=== PATIENT | female | born 1960 | race Caucasian/White ===

== ENCOUNTER 2018-07-15 12:55 | Emergency (ER) | payer SELFPAY ==
--- NOTE | 2018-07-15 14:31 | ER Document Report ---
ED Medical Screen (RME) - General TRAVEL OUTSIDE OF THE U.S. IN LAST 30 DAYS: No <ALIS ADAMS - Last Filed: 07/15/18 14:30> <ROMINA JIANG - Last Filed: 07/15/18 17:50> - General Chief Complaint: Nose Bleed Stated Complaint: BLOODY NOSE Time Seen by Provider: 07/15/18 14:12 Notes: 58-year-old female patient reports nosebleeds for the past 3 days. day night there was a lot of blood and she has been feeling weak. Nosebleeds are a new problem for her. Blood came out of both sides. She is not actively bleeding at this time. In the ED she is noted to have very high blood pressure, she was not aware of this, but states she has had no insurance for the last 18 years and is not been to see a doctor. I have greeted and performed a rapid initial assessment of this patient. A comprehensive ED assessment and evaluation of the patient, analysis of test results and completion of the medical decision making process will be conducted by additional ED providers. (ALIS ADAMS) - Related Data Allergies/Adverse Reactions: No Known Allergies Allergy (Unverified 07/15/18 14:10) Past Medical History - Social History Frequency of alcohol use: Occasional Drug Abuse: None Renal/ Medical History: Denies: Hx Peritoneal Dialysis Past Surgical History: Reports: Hx Breast Surgery - right breast removed <ALIS ADAMS - Last Filed: 07/15/18 14:30> - Vital signs Vitals: Temp Pulse Resp BP Pulse Ox 97.6 F 113 H 20 192/106 H 100 07/15/18 13:21 07/15/18 13:21 07/15/18 13:21 07/15/18 13:21 07/15/18 13:21 Course - Laboratory Result Diagrams: 07/15/18 14:53 07/15/18 14:53 <ROMINA JIANG - Last Filed: 07/15/18 17:50> - Vital Signs Vital signs: Temp Pulse Resp BP Pulse Ox 97.6 F 113 H 29 H 209/96 H 100 07/15/18 13:21 07/15/18 13:21 07/15/18 16:06 07/15/18 16:06 07/15/18 16:06 - Laboratory Laboratory results interpreted by me: 07/15/18 07/15/18 14:53 14:53 WBC 11.4 H Hgb 11.9 L Hct 34.1 L Seg Neutrophils % 78.6 H Absolute Neutrophils 9.0 H Carbon Dioxide 19 L BUN 59 H Creatinine 1.29 H Est GFR ( Amer) 51 L Est GFR (Non-Af Amer) 42 L Doctor's Discharge <ALIS ADAMS - Last Filed: 07/15/18 14:30> <ROMINA JIANG - Last Filed: 07/15/18 17:50> - Discharge Referrals: LOCALMD,NO [NO LOCAL MD] - Follow up as needed
[2018-07-15] MEDS ORDERED: HYDRALAZINE HCL INJ/PF 20 MG/1 ML SDV IV ONE (15:04)
[2018-07-15 15:07] LABS: ABSOLUTE BASOPHILS # (AUTO) 0.1 10^3/uL (0.0-0.2); ABSOLUTE LYMPHOCYTES (AUTO) 1.6 10^3/uL (0.5-4.7); ABSOLUTE MONOCYTES (AUTO) 0.7 10^3/uL (0.1-1.4); BASOPHILS % (AUTO) 0.9 % (0-2); EOSINOPHILS % (AUTO) 0.2 % (0-6); HEMATOCRIT 34.1 % (36.0-47.0); HEMOGLOBIN 11.9 g/dL (12.0-15.5); LYMPHOCYTES % (AUTO) 14.1 % (13-45); MEAN CORPUSCULAR HEMOGLOBIN 30.4 pg (27.0-33.4); MEAN CORPUSCULAR VOLUME 87 fl (80-97); MONOCYTES % (AUTO) 6.2 % (3-13); PLATELET COUNT 224 10^3/uL (150-450); RED BLOOD COUNT 3.92 10^6/uL (3.72-5.28); RED CELL DISTRIBUTION WIDTH 13.1 % (11.5-14.0); SEGMENTED NEUTROPHILS % (AUTO) 78.6 % (42-78); TOTAL CELLS COUNTED % (AUTO) 100 %; WHITE BLOOD COUNT 11.4 10^3/uL (4.0-10.5)
[2018-07-15] MEDS ORDERED: ONDANSETRON HCL INJ/PF 4 MG/2 ML SDV IV ONE (15:13)
[2018-07-15 15:22] LABS: INTERNATIONAL RATION (INR) 0.94; PROTHROMBIN TIME 13.1 SEC (11.4-15.4)
[2018-07-15 15:31] LABS: ALANINE AMINOTRANSFERASE 12 U/L (9-52); ALBUMIN 3.8 g/dL (3.5-5.0); ALKALINE PHOSPHATASE 51 U/L (38-126); ANION GAP 13 (5-19); ASPARTATE AMINO TRANSFERASE 17 U/L (14-36); BILIRUBIN,DIRECT 0.3 mg/dL (0.0-0.4); BILIRUBIN,TOTAL 0.8 mg/dL (0.2-1.3); BLOOD UREA NITROGEN 59 mg/dL (7-20); CALCIUM 9.2 mg/dL (8.4-10.2); CARBON DIOXIDE 19 mmol/L (22-30); CHLORIDE 106 mmol/L (98-107); GLUCOSE 110 mg/dL (75-110); POTASSIUM 4.7 mmol/L (3.6-5.0); SODIUM 137.8 mmol/L (137-145); TOTAL PROTEIN 6.4 g/dL (6.3-8.2)
[2018-07-15] MEDS ORDERED: METOPROLOL TARTRATE 50 MG TABLET PO ONE (15:57)
[2018-07-15 18:00] VITALS: BP 182/97
--- NOTE | 2018-07-15 18:09 | ER Document Report ---
ED General - General Chief Complaint: Nose Bleed Stated Complaint: BLOODY NOSE Time Seen by Provider: 07/15/18 14:12 Mode of Arrival: Ambulatory Information source: Patient TRAVEL OUTSIDE OF THE [place]. IN LAST 30 DAYS: No - HPI Patient complains to provider of: Nosebleed Onset: Other - 58-year-old female with no known medical problems presents for evaluation of a nosebleed. She notes that she has not received any care in several months as she lost insurance previously. She has had 3 episodes of nosebleeds this month which were "like a faucet" which she was able to stop with the use of direct pressure after some time. She denies any trauma to the nose fevers or chills blood thinner use previous episodes of bleeding or problems related to bleeding - Related Data Allergies/Adverse Reactions: No Known Allergies Allergy (Unverified 07/15/18 14:10) Past Medical History - General Information source: Patient - Social History Smoking Status: Current Every Day Smoker Smoking Education Provided: Yes Frequency of alcohol use: Occasional Drug Abuse: None Family History: None Patient has suicidal ideation: No Patient has homicidal ideation: No Renal/ Medical History: Denies: Hx Peritoneal Dialysis Past Surgical History: Reports: Hx Breast Surgery - right breast removed Review of Systems - Review of Systems -: Yes All other systems reviewed and negative Physical Exam - Vital signs Vitals: Temp Pulse Resp BP Pulse Ox 97.6 F 113 H 20 192/106 H 100 07/15/18 13:21 07/15/18 13:21 07/15/18 13:21 07/15/18 13:21 07/15/18 13:21 - General General appearance: Appears well, Alert - HEENT Head: Normocephalic Eyes: Normal Conjunctiva: Normal Cornea: Normal Ears: Normal External canal: Normal Nasal: Bloody discharge - Respiratory Respiratory status: No respiratory distress Chest status: Nontender Breath sounds: Normal Chest palpation: Normal - Cardiovascular Rhythm: Regular Heart sounds: Normal auscultation Murmur: No - Abdominal Inspection: Normal Distension: No distension Bowel sounds: Normal Tenderness: Nontender Organomegaly: No organomegaly - Back Back: Normal, Nontender - Extremities General upper extremity: Normal inspection, Nontender, Normal color, Normal ROM , Normal temperature General lower extremity: Normal inspection, Nontender, Normal color, Normal ROM , Normal temperature, Normal weight bearing. No: Kassie's sign - Neurological Neuro grossly intact: Yes Cognition: Normal Orientation: AAOx4 Bliss Coma Scale Eye Opening: Spontaneous Kristine Coma Scale Verbal: Oriented Bliss Coma Scale Motor: Obeys Commands Kristine Coma Scale Total: 15 Speech: Normal Motor strength normal: LUE, RUE, LLE, RLE Sensory: Normal - Psychological Associated symptoms: Normal affect, Normal mood Course - Re-evaluation Re-evalutation: Despite actually documented vital signs patient's actual vital signs improved in comparison, heart rate is in the 80s. Blood pressures in the 170 systolic range. Patient's asymptomatic at this time with no complaints. This 58-year-old female presented for bloody nose which stopped prior to my evaluation. At the time of evaluation she did have slight blood dried near the left naris but otherwise looked well. She is evidence of hypertension her arrival likely is a contributor to recurrent nosebleed she is not received care in a long time. Initially because of her markedly elevated blood pressure she was given a dose of metoprolol. Her blood pressure improved following administration of antihypertensives. She was monitored in the emergency department, no endorgan damage was obviously identified though she does have a slight evidence of renal insufficiency I did speak to her about further management investigation and alternatives I offered admission and monitoring in the hospital for markedly elevated blood pressure I offered her outpatient management and referral she prefers to pursue outpatient treatment. She is given a prescription for blood pressure medication as she does seem to have likely undiagnosed persistent hypertension for which she is currently untreated. She also did have an abnormal EKG which did demonstrate hypertrophic changes likely as a result of her long-standing untreated hypertension. At the time of discharge she was hemodynamically stable asymptomatic and not desiring any further workup. She will undergo discharge with return precautions and expectant management encouraged follow-up with the primary in the coming week for a blood pressure recheck. - Vital Signs Vital signs: Temp Pulse Resp BP Pulse Ox 97.6 F 113 H 19 182/97 H 100 07/15/18 13:21 07/15/18 13:21 07/15/18 17:01 07/15/18 17:01 07/15/18 17:01 - Laboratory Result Diagrams: 07/15/18 14:53 07/15/18 14:53 Laboratory results interpreted by me: 07/15/18 07/15/18 14:53 14:53 WBC 11.4 H Hgb 11.9 L Hct 34.1 L Seg Neutrophils % 78.6 H Absolute Neutrophils 9.0 H Carbon Dioxide 19 L BUN 59 H Creatinine 1.29 H Est GFR ( Amer) 51 L Est GFR (Non-Af Amer) 42 L Discharge - Discharge Clinical Impression: Bleeding nose Hypertension Qualifiers: Hypertension type: unspecified Qualified Code(s): I10 - Essential (primary) hypertension Condition: Good Disposition: HOME, SELF-CARE Instructions: High Blood Pressure ([facility]), Nosebleed Instructions ([facility]) Additional Instructions: He was seen today in the emergency department for your nosebleed and high blood pressure. He had an evaluation including a physical exam as well as test of your blood and tracing of your heart. You have been started on a blood pressure medication. It is important that you follow-up with a doctor this week. If you have any worsening shortness of breath, chest pain, lightheadedness or return of nosebleeds return to the emergency room as it could be a more serious condition. Avoid blood thinning medications and avoid dryer make sure you are taking medications for your allergies. Prescriptions: Metoprolol Tartrate [Lopressor 50 mg Tablet] 50 mg PO BID #60 tablet Forms: Elevated Blood Pressure, Return to Work Referrals: [facility] [Provider Group] - Follow up in 3-5 days
--- NOTE | 2018-07-15 19:39 | EKG REPORT ---
SEVERITY:- ABNORMAL ECG - SINUS RHYTHM PROBABLE LEFT ATRIAL ABNORMALITY LVH WITH SECONDARY REPOLARIZATION ABNORMALITY ANTERIOR ST ELEVATION, PROBABLY DUE TO LVH : Confirmed by: Latrell Whitt MD 15-Jul-2018 19:38:52
== END 2018-07-15 18:45 | disposition home or self-care (01) ==
LOC: ER 12:55
DX: R04.0 Epistaxis (principal); I10 Essential (primary) hypertension; N28.9 Disorder of kidney and ureter, unspecified; F17.200 Nicotine dependence, unspecified, uncomplicated
CPT/HCPCS: 93005; 99284; 96374; 96375; 36415; 85025; 85610; 80053; 93010; J0360; J2405

== ENCOUNTER 2018-10-28 18:39 | Emergency (ER) | payer SELFPAY ==
[2018-10-28 19:16] LABS: ABSOLUTE BASOPHILS # (AUTO) 0.1 10^3/uL (0.0-0.2); ABSOLUTE EOSINOPHILS # (AUTO) 0.1 10^3/uL (0.0-0.6); ABSOLUTE MONOCYTES (AUTO) 0.9 10^3/uL (0.1-1.4); EOSINOPHILS % (AUTO) 0.8 % (0-6); HEMATOCRIT 44.4 % (36.0-47.0); HEMOGLOBIN 15.2 g/dL (12.0-15.5); LYMPHOCYTES % (AUTO) 10.3 % (13-45); MEAN CORPUSCULAR HEMOGLOBIN 26.1 pg (27.0-33.4); MEAN CORPUSCULAR HGB CONC 34.3 g/dL (32.0-36.0); MEAN CORPUSCULAR VOLUME 76 fl (80-97); MONOCYTES % (AUTO) 8.9 % (3-13); PLATELET COUNT 243 10^3/uL (150-450); RED BLOOD COUNT 5.84 10^6/uL (3.72-5.28); RED CELL DISTRIBUTION WIDTH 15.9 % (11.5-14.0); TOTAL CELLS COUNTED % (AUTO) 100 %; WHITE BLOOD COUNT 10.1 10^3/uL (4.0-10.5)
[2018-10-28 19:18] LABS: PROTHROMBIN TIME 12.6 SEC (11.4-15.4)
[2018-10-28 19:19] LABS: PARTIAL THROMBOPLASTIN TIME 31.4 SEC (23.5-35.8)
[2018-10-28] MEDS: NICARDIPINE HCL RTU, ISO-OS 20 MG/200 ML RTUINJ IV PRN ×2 (19:20→19:36)
--- NOTE | 2018-10-28 19:30 | EKG REPORT ---
SEVERITY:- ABNORMAL ECG - SINUS RHYTHM LEFT ATRIAL ABNORMALITY LVH WITH SECONDARY REPOLARIZATION ABNORMALITY ANTERIOR ST ELEVATION, PROBABLY DUE TO LVH : Confirmed by: Latrell Whitt MD 28-Oct-2018 19:29:38
--- NOTE | 2018-10-28 19:32 | RADIOLOGY REPORT (SQ) ---
EXAM DESCRIPTION: CT HEAD WITHOUT COMPLETED DATE/TIME: 10/28/2018 7:07 pm REASON FOR STUDY: stroke s/s COMPARISON: None. TECHNIQUE: Axial images acquired through the brain without intravenous contrast. Images reviewed wi th bone, brain and subdural windows. Additional sagittal and coronal reconstructions were generated. Images stored on PACS. All CT scanners at this facility use dose modulation, iterative reconstruction, and/or weight based d osing when appropriate to reduce radiation dose to as low as reasonably achievable (ALARA). [facility]: Dose Right [facility]: CareDose [facility]: Dose Right [facility]: Teradose 4D [facility]: [employer] RADIATION DOSE: mGy. LIMITATIONS: None. FINDINGS: VENTRICLES: Normal size and contour. CEREBRUM: There is a 3 cm area of hemorrhage in the left posterior frontal lobe. There is no midline shift. There is limited encephalomalacia in the posterior left occipital lobe. Few scattered areas of low density in the white matter most likely chronic small vessel ischemic changes. CEREBELLUM: There is small area of encephalomalacia in the right lobe of the cerebellum. EXTRAAXIAL SPACES: No fluid collections. No masses. ORBITS AND GLOBE: No intra- or extraconal masses. Normal contour of globe without masses. CALVARIUM: No fracture. PARANASAL SINUSES: No fluid or mucosal thickening. SOFT TISSUES: No mass or hematoma. OTHER: No other significant finding. IMPRESSION: 3 cm area of hemorrhage in the left posterior frontal lobe. 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 EVIDENCE OF ACUTE STROKE: Yes LEFT MCA. COMMENT: Findings were discussed with Telma Dillon MD at 1926 hours on this date. Quality ID # [id number]: Final reports with documentation of one or more dose reduction techniques (e.g., Au tomated exposure control, adjustment of the mA and/or kV according to patient size, use of iterative reconstruction technique) TECHNICAL DOCUMENTATION: JOB ID: [id number] [employer]- All Rights Reserved Reading location - IP/workstation name: [email or web address]
--- NOTE | 2018-10-28 19:47 | ER Document Report ---
ED General - General Stated Complaint: POSSIBLE STROKE Time Seen by Provider: 10/28/18 18:39 Mode of Arrival: Stretcher Information source: Patient, Emergency Med Personnel Notes: HISTORY OF PRESENT ILLNESS: Patient is a 58-year-old female with a past medical history of uncontrolled hypertension secondary to medication noncompliance who presents with acute onset trouble speaking with right-sided face weakness that began approximately 1.5 hours prior to arrival. Location: Face Onset: Sudden Alleviation: None Provocation: None Quality: Weakness Radiation: None Severity: Moderate Timing: Constant History of CVA: None Associated symptoms: No confusion/disorientation, no chest pain/shortness of breath, no fevers/chills, no ataxia REVIEW OF SYSTEMS: CONSTITUTIONAL : Denies fever or chills, no sweats. Denies recent illness. EENT: Denies eye, ear, throat, or mouth pain or symptoms. Denies nasal or sinus congestion. CARDIOVASCULAR: Denies chest pain. Denies swelling of the legs. RESPIRATORY: Denies cough, cold, or chest congestion. Denies shortness of breath or difficulty breathing. Denies wheezing. GASTROINTESTINAL: Denies abdominal pain. Denies nausea, vomiting, or diarrhea. Denies constipation. GENITOURINARY: Denies difficulty urinating, painful urination, burning, frequency, or blood in urine. MUSCULOSKELETAL: Denies neck or back pain or joint pain or swelling. SKIN: Denies rash or skin lesions. HEMATOLOGIC : Denies easy bruising or bleeding. LYMPHATIC: Denies swollen, enlarged glands. NEUROLOGICAL: Positive for aphasia and right-sided facial weakness. Denies altered mental status or loss of consciousness. Denies headache. Denies sensory or motor loss. PSYCHIATRIC: Denies anxiety or stress or depression. All other systems reviewed and negative. PHYSICAL EXAMINATION: GENERAL: Nontoxic-appearing, well-nourished and in no acute distress. HEAD: Atraumatic, normocephalic. No scalp deformity, depression, or crepitance. EYES: Right-sided facial droop, pupils are 3 mm and equal/round/reactive to light, extraocular movements intact, sclera anicteric, conjunctiva are normal. ENT: Nares patent bilaterally, oropharynx. Moist mucous membranes. No tonsil hypertrophy. NECK: Normal range of motion, supple without lymphadenopathy. LUNGS: Breath sounds present, equal, and clear to auscultation bilaterally. No wheezes, rales, or rhonchi. HEART: Regular rate and rhythm without murmurs, rubs, or gallops. 2+ peripheral pulses. Normal capillary refill. ABDOMEN: Soft, nontender, nondistended. Normoactive bowel sounds. No guarding, no rebound. No masses appreciated. BACK: Normal contour, no midline tenderness. Rectal exam deferred. GENITAL/PELVIC: Deferred. EXTREMITIES: Normal range of motion, no pitting or edema. No cyanosis. NEUROLOGICAL: Right-sided facial droop, moderate aphasia. Moves all extremities spontaneously and on command. PSYCH: Normal mood, normal affect. No suicidal thoughts/ideations. No homocidal thoughts/ideations. No hallucinations. SKIN: Warm, dry, normal turgor, no rashes or lesions noted. ASSESSMENT AND PLAN: This patient is a 58-year-old female who presents with possible stroke. 1. Will obtain stat head CT, culture labs, and reassess. 2. Will start nicardipine for blood pressure control. TRAVEL OUTSIDE OF THE [place] IN LAST 30 DAYS: No - Related Data Allergies/Adverse Reactions: No Known Allergies Allergy (Unverified 07/15/18 14:10) Past Medical History - General Information source: Patient, Emergency Med Personnel - Social History Smoking Status: Current Every Day Smoker Chew tobacco use (# tins/day): No Frequency of alcohol use: Occasional Drug Abuse: None Lives with: Family Family History: Reviewed & Not Pertinent Patient has suicidal ideation: No Patient has homicidal ideation: No - Past Medical History Cardiac Medical History: Reports: Hx Hypertension Pulmonary Medical History: Reports: None EENT Medical History: Reports: None Neurological Medical History: Reports: None Endocrine Medical History: Reports: None Renal/ Medical History: Reports: None. Denies: Hx Peritoneal Dialysis Malignancy Medical History: Reports: None GI Medical History: Reports: None Musculoskeletal Medical History: Reports None Skin Medical History: Reports None Psychiatric Medical History: Reports: None Traumatic Medical History: Reports: None Infectious Medical History: Reports: None Past Surgical History: Reports: Hx Breast Surgery - right breast removed - Immunizations Immunizations up to date: Yes Hx Diphtheria, Pertussis, Tetanus Vaccination: Yes History of Influenza Vaccine for 05/2017 - 10/2017 Season: No Physical Exam - Vital signs Vitals: Pulse Ox 95 10/28/18 18:46 Course - Re-evaluation Re-evalutation: 10/28/18 18:41 Patient has a moderate sized intraparenchymal hemorrhage in the left parietal lobe, continues to be nontoxic-appearing and moving all extremities/follow commands. Will initiate nicardipine drip and consult [facility] for transf er. 10/28/18 19:30 Patient has been accepted to tertiary center. - Vital Signs Vital signs: Temp Pulse Resp BP Pulse Ox 98.3 F 91 18 228/113 H 97 10/28/18 20:31 10/28/18 19:06 10/28/18 20:31 10/28/18 20:31 10/28/18 20:31 - Laboratory Result Diagrams: 10/28/18 18:59 10/28/18 18:59 Laboratory results interpreted by me: 10/28/18 10/28/18 18:59 18:59 RBC 5.84 H MCV 76 L MCH 26.1 L RDW 15.9 H Seg Neutrophils % 79.0 H Lymphocytes % 10.3 L Sodium 135.9 L BUN 34 H Creatinine 1.29 H Est GFR ( Amer) 51 L Est GFR (Non-Af Amer) 42 L - Diagnostic Test Radiology reviewed: Image reviewed, Reports reviewed - EKG Interpretation by Me EKG shows normal: Sinus rhythm Rate: Normal Rhythm: No: NSR, SVT, Arrthymia, A.Fib, A.Flutter, with a 2:1 Block, V.Tach, Torsades, V. Fib, MAT, PVC's, APC's, Other [place]/QRS: No: Right axis deviation, Left axis deviation, RBBB, LBBB, IVCD, LAHB/LAFB, LPHB/LPFB, Bifasicular block Voltage: No: Increased voltage, Consistant with LVH, Decreased voltage, Throughout, Limb leads P Waves: No: MARYJO, LAE, Absent, AV Dissociation, Other Heart block present: No: 1st Degree, Mobitz 1, Mobitz 2, CHB (3rd degree block) When compared to previous EKG there are: No significant change - Consults Dr[facility] Voss ([facility]) Time consulted: 19:27 - will accept in transfer to [facility] Consulted provider: other - give 1g of TXA, 1g of Keppra, and transfer Critical Care Note - Critical Care Note Total time excluding time spent on procedures (mins): 60 Comments: Critical care time spent obtaining history from patient or surrogate, discussions with consultants, development of treatment plan with patient or surrogate, evaluation of patient's response to treatment, examination of patient, ordering and performing treatments and interventions, ordering and review of laboratory studies, re-evaluation of patient's condition, ordering and review of radiographic studies and review of old charts. Discharge - Discharge Clinical Impression: Hemorrhagic cerebrovascular accident (CVA), Hypertensive emergency Condition: Stable Disposition: [facility], [facility]1983 NIH Stroke Scale - NIH Stroke Scale When completed:: Before Alteplase *: 1. NIH scale should be completed with appropriate accompanying assessment tools. *: 2. The NIH should reflect what the patient is capable of doing and should not be coached by the clinician. 1a. Level of Consciousness: 0=Alert;keenly responsive -: 1=Drowsy -: 2=Obtunded -: 3=Coma/unresponsive or reflex to noxious stimuli. 1a. Responses: 0 1b. Orientation Questions: a. What month is it? -: b. How old are you? -: 0=Answers both questions correctly. -: 1=Answers one question correctly or patient is intubated or has orotracheal trauma. -: 2=Answers neither question correctly. 1b. Responses: 0 1c. Response to commands: a. Open and close eyes? -: b. Student Records Specialist and release hand? -: Credit is given despite weakness. Demonstration of task is permitted. Subs titute command if hands cannot be used. -: 0=Performs both tasks correctly -: 1=Performs one task correctly -: 2=Performs neither task correctly 1c. Responses: 0 2. Gaze: Establish eye contact and instruct patient to "Follow my finger" -: 0=Normal -: 1=Partial gaze palsy. Gaze is abnormal in one or both eyes, but where forced deviation or total gaze paresis is not present. -: 2=Forced deviation or total gaze paresis. 2. Responses: 0 3. Visual Lara: Sees fingers in all four quadrants. -: 0=No visual loss. -: 1=Partial hemianopsia. -: 2=Complete hemianopsia. -: 3=Bilateral hemianopsia (including Cortical blindness) 3. Responses: 0 4. Facial Movement: Instruct patient to: -: a. Show me your teeth -: b. Raise your eyebrows -: c. Close your eyes -: d. Smile -: 0=Normal symmetrical movement -: 1=Minor paralysis (flattened nasolabial fold, asymmetry on smiling). -: 2=Partial paralysis (total or near total paralysis of lower face). -: 3=Complete paralysis of upper and lower face 4. Responses: 1 5. Motor functions (left arm): Alternate sides and extend each arm with palms down (90 degrees if sitting or 45 degrees for supine). -: 0=No drift;limb holds for full 10 seconds. -: 1=Drift; limb holds but drifts down before full 10 seconds, but does not hit bed. -: 2=Some effort against gravity; limb cannot get to or maintain position. -: 3=No effort against gravity; limb falls. -: 4=No movement. -: UN=Amputation, joint fusion, explain in comments. 5. Responses (left arm): 0 5. Motor Functions (right arm): Alternate sides and extend each arm with palms down (90 degrees if sitting or 45 degrees for supine). -: 0=No drift;limb holds for full 10 seconds. -: 1=Drift; limb holds but drifts down before full 10 seconds, but does not hit bed. -: 2=Some effort against gravity; limb cannot get to or maintain position. -: 3=No effort against gravity; limb falls. -: 4=No movement. -: UN=Amputation, joint fusion, explain in comments. 5. Responses (right arm): 0 6. Motor Functions (left leg): With patient lying supine, alternate sides and extend each leg (30 degrees always while supine). -: 0=No drift, leg holds position for full 5 seconds -: 1=Drift; leg falls before full 5 seconds but does not hit bed. -: 2=Some effort against gravity, leg falls to bed but some effort against gravity. -: 3=No effort against gravity, leg falls to bed immediately. -: 4=No movement. -: UN=Amputation, joint fusion; explain in comments. 6. Responses (left leg): 0 6. Motor Functions (right leg): With patient lying supine, alternate sides and extend each leg (30 degrees always while supine). -: 0=No drift, leg holds position for full 5 seconds -: 1=Drift; leg falls before full 5 seconds but does not hit bed. -: 2=Some effort against gravity, leg falls to bed but some effort against gravity. -: 3=No effort against gravity, leg falls to bed immediately. -: 4=No movement. -: UN=Amputation, joint fusion; explain in comments. 6. Responses (right leg): 0 7. Limb Ataxia: With eyes open instruct patient to: -: a. "Touch your finger to your nose". -: b. "Touch your heel to your bishop" -: 0=Absent -: 1=Present in one limb. -: 2=Present in two limbs. -: UN=Amputation or joint fusion; explain in comments. 7. Responses: 0 8. Sensory: Test sensation using pinprick or noxious stimuli. Test as many body parts as possible. -: 0=Normal;no sensory loss -: 1=Mile to moderate sensory loss (patient feels pin prick but is less sharp on affected side). -: 2=Severe or total sensory loss. 8. Responses: 0 9. Best Language: Instruct patient to: -: a. "Describe what you see in this picture." -: b. "Name the items in this picture." -: c. "Read these sentences." -: 0=No aphasia, normal -: 1=Mild to moderate aphasia. -: 2=Severe aphasia -: 3=Mute, global aphasia, no usable speech or auditory comprehension. 9. Responses: 1 10. Articulation, Dysarthia: Instruct patient to: -: "Read these words" or "Repeat these words" -: 0=Normal -: 1=Mild to moderate; patient may slur some words but can be understood without difficulty. -: 2=Severe; patients speech so slurred as to be unintelligible in the absence of dysphasia. -: UN=Intubated or other physical barrier, explain in comments. 10. Responses: 1 11. Extinction or inattention: 0=No abnormality -: 1= Visual, tactile, auditory, spatial, or personal inattention or extinction to bilateral simulation in one or the sensory modalities. -: 2=Profound arian-inattention or arian-inattention to more than one modality; does not recognize own hand. 11. Responses: 0 Total Score: 3
[2018-10-28] MEDS ORDERED: TRANEXAMIC ACID INJ/PF 1,000 MG/10 ML SDV IV ONE (19:49)
[2018-10-28 19:53] LABS: ALANINE AMINOTRANSFERASE 16 U/L (9-52); ALBUMIN 4.3 g/dL (3.5-5.0); ALKALINE PHOSPHATASE 79 U/L (38-126); ANION GAP 13 (5-19); ASPARTATE AMINO TRANSFERASE 21 U/L (14-36); BILIRUBIN,DIRECT 0.4 mg/dL (0.0-0.4); BILIRUBIN,TOTAL 0.7 mg/dL (0.2-1.3); BLOOD UREA NITROGEN 34 mg/dL (7-20); CALCIUM 10.1 mg/dL (8.4-10.2); CARBON DIOXIDE 22 mmol/L (22-30); CHLORIDE 101 mmol/L (98-107); CREATINE KINASE 46 U/L (30-135); GLUCOSE 107 mg/dL (75-110); POTASSIUM 4.1 mmol/L (3.6-5.0); SODIUM 135.9 mmol/L (137-145); TOTAL PROTEIN 7.4 g/dL (6.3-8.2)
[2018-10-28] MEDS ORDERED: LEVETIRACETAM 1000 MG/NACL-ISO 1,000 MG/100 ML RTUPB IV SCH (20:00)
[2018-10-28 20:05] LABS: CREATINE KINASE MB 2.3 ng/mL (<4.55)
[2018-10-28 20:17] LABS: TROPONIN I 0.067 ng/mL
[2018-10-28 20:36] VITALS: BP 228/113
[2018-10-28] MEDS ORDERED: NICOTINE 21 MG/24 HR PATCH.TD24 TD ONE (20:40)
== END 2018-10-28 20:52 | disposition short-term general hospital (02) ==
LOC: ER 18:39
DX: I61.1 Nontraumatic intracerebral hemorrhage in hemisphere, cortical (principal); R29.810 Facial weakness; R47.01 Aphasia; I16.1 Hypertensive emergency; I10 Essential (primary) hypertension; F17.200 Nicotine dependence, unspecified, uncomplicated
CPT/HCPCS: 93005; 36415; 82553; 82962; 82550; 85025; 85610; 85730; 80053; 84484; 70450; 93010; J3490 ×2; J1953

== ENCOUNTER 2018-11-17 13:03 | Emergency (ER) | payer SELFPAY ==
[2018-11-17 14:34] LABS: APPEARANCE,URINE SLIGHTLY-CLOUDY; BILIRUBIN,URINE NEGATIVE (NEGATIVE); COLOR,URINE YELLOW; GLUCOSE, URINE NEGATIVE (NEGATIVE); KETONES,URINE NEGATIVE (NEGATIVE); LEUKOCYTE ESTERASE,URINE LARGE (NEGATIVE); NITRITE,URINE NEGATIVE (NEGATIVE); PROTEIN,URINE 100 mg/dL (NEGATIVE); URINE SPECIFIC GRAVITY 1.012; UROBILINOGEN,URINE NEGATIVE mg/dL (<2.0)
[2018-11-17 14:45] LABS: ABSOLUTE EOSINOPHILS # (AUTO) 0.1 10^3/uL (0.0-0.6); ABSOLUTE LYMPHOCYTES (AUTO) 0.9 10^3/uL (0.5-4.7); ABSOLUTE MONOCYTES (AUTO) 0.7 10^3/uL (0.1-1.4); ABSOLUTE NEUT (AUTO) 11.6 10^3/uL (1.7-8.2); BASOPHILS % (AUTO) 0.3 % (0-2); EOSINOPHILS % (AUTO) 0.6 % (0-6); HEMATOCRIT 40.5 % (36.0-47.0); HEMOGLOBIN 13.6 g/dL (12.0-15.5); LYMPHOCYTES % (AUTO) 6.9 % (13-45); MEAN CORPUSCULAR HEMOGLOBIN 25.1 pg (27.0-33.4); MEAN CORPUSCULAR HGB CONC 33.5 g/dL (32.0-36.0); MEAN CORPUSCULAR VOLUME 75 fl (80-97); PLATELET COUNT 221 10^3/uL (150-450); RED BLOOD COUNT 5.39 10^6/uL (3.72-5.28); RED CELL DISTRIBUTION WIDTH 16.2 % (11.5-14.0); SEGMENTED NEUTROPHILS % (AUTO) 87.2 % (42-78); TOTAL CELLS COUNTED % (AUTO) 100 %; WHITE BLOOD COUNT 13.3 10^3/uL (4.0-10.5)
[2018-11-17 15:04] LABS: ALANINE AMINOTRANSFERASE 22 U/L (9-52); ALBUMIN 3.5 g/dL (3.5-5.0); ALKALINE PHOSPHATASE 68 U/L (38-126); ANION GAP 8 (5-19); ASPARTATE AMINO TRANSFERASE 18 U/L (14-36); BILIRUBIN,DIRECT 0.5 mg/dL (0.0-0.4); BILIRUBIN,TOTAL 0.8 mg/dL (0.2-1.3); BLOOD UREA NITROGEN 35 mg/dL (7-20); CALCIUM 9.5 mg/dL (8.4-10.2); CARBON DIOXIDE 21 mmol/L (22-30); CHLORIDE 106 mmol/L (98-107); GLUCOSE 108 mg/dL (75-110); POTASSIUM 5.6 mmol/L (3.6-5.0); SODIUM 134.8 mmol/L (137-145)
[2018-11-17 15:16] LABS: CREATINE KINASE < 20 U/L (30-135); TROPONIN I 0.014 ng/mL
[2018-11-17 15:18] LABS: CREATINE KINASE MB < 0.22 ng/mL (<4.55)
[2018-11-17] MEDS ORDERED: NORMAL SALINE 1000 ML 1,000 ML IV ONE (15:32)
[2018-11-17 17:09] LABS: VENOUS BLOOD BASE EXCESS -1.6 mmol/L; VENOUS BLOOD HCO3 24.1 mmol/L (20-32); VENOUS BLOOD PCO2 44.1 mmHg (35-63); VENOUS BLOOD PH 7.36 (7.30-7.42)
[2018-11-17] MEDS ORDERED: CEPHALEXIN 500 MG CAPSULE PO ONE (18:28)
[2018-11-17] MEDS ORDERED: PATIROMER 8.4 GM SUSP PACKET PO SCH (18:30)
[2018-11-17] MEDS ORDERED: PATIROMER 8.4 GM SUSP PACKET ONE (19:11)
[2018-11-17 19:22] VITALS: BP 184/89
--- NOTE | 2018-11-17 20:12 | EKG REPORT ---
SEVERITY:- ABNORMAL ECG - SINUS RHYTHM PROBABLE LEFT ATRIAL ABNORMALITY LVH WITH SECONDARY REPOLARIZATION ABNORMALITY ABNORMAL T, PROBABLE ISCHEMIA, LATERAL LEADS : Confirmed by: Bekah Childress MD 17-Nov-2018 20:11:14
--- NOTE | 2018-11-17 22:07 | ER Document Report ---
Entered by HERNANDO DUENAS SCRIBE 11/17/18 1528 Acting as scribe for:JUANJO CHENG DO ED Syncope and Near Syncope - General Chief Complaint: Dizziness Stated Complaint: SYNCOPE Time Seen by Provider: 11/17/18 14:57 Information source: Patient, Relative Notes: 58 year old female with history of a hemorrhagic stroke x3 weeks ago that presents to the emergency department today with complaints of a syncopal episode that occurred just prior to arrival. Patient states that she was making a cup of coffee when this syncopal episode occurred. Family member at bedside states that the patient was standing up at the counter and went "completely limp" and unresponsive for about 60 seconds. Family member states that she was able to catch the patient and lie her down on the floor so she did not fall. Family member states there was no shaking activity during this episode. Patient has had a hollins catheter in place since discharge from [facility] approximately x10 days ago. Patient denies any shortness of breath, nausea, vomiting, diarrhea, abdominal pain, urinary symptoms, headaches, dizziness, or confusion. Patient and family state that the patient is not on any blood thinning medications. TRAVEL OUTSIDE OF THE [place] IN LAST 30 DAYS: No - Related Data Allergies/Adverse Reactions: No Known Allergies Allergy (Unverified 07/15/18 14:10) Past Medical History - General Information source: Patient - Social History Smoking Status: Former Smoker Cigarette use (# per day): No Frequency of alcohol use: None Drug Abuse: None Lives with: Family Family History: Reviewed & Not Pertinent Patient has suicidal ideation: No Patient has homicidal ideation: No - Past Medical History Cardiac Medical History: Reports: Hx Hypertension Past Surgical History: Reports: Hx Breast Surgery - right breast removed, Hx Mastectomy - Right - Immunizations Immunizations up to date: Yes Hx Diphtheria, Pertussis, Tetanus Vaccination: Yes Review of Systems - Review of Systems Constitutional: No symptoms reported EENT: No symptoms reported Cardiovascular: See HPI, Syncope. denies: Chest pain, Dizziness Respiratory: denies: Short of breath Gastrointestinal: denies: Abdominal pain, Diarrhea, Nausea, Vomiting Genitourinary: denies: Dysuria Female Genitourinary: No symptoms reported Musculoskeletal: No symptoms reported Skin: No symptoms reported Hematologic/Lymphatic: No symptoms reported Neurological/Psychological: denies: Confusion, Seizure, Headaches -: Yes All other systems reviewed and negative Physical Exam - Vital signs Vitals: Resp Pulse Ox 12 97 11/17/18 13:11 11/17/18 13:11 - Notes Notes: PHYSICAL EXAM GENERAL: Alert. No acute distress. HEAD: Normocephalic, atraumatic. EYES: Pupils equal, round, and reactive to light. Extraocular movements intact. ENT: Oral mucosa moist, tongue midline. NECK: Full range of motion. Supple. Trachea midline. LUNGS: Trace crackles at the bases bilaterally, no wheezing or rhonchi. No respiratory distress. HEART: Regular rate and rhythm. No murmurs, gallops, or rubs. ABDOMEN: Soft, non-tender. Non-distended. Bowel sounds present in all 4 quadrants. No guarding, rigidity, or rebound. GENITOURINARY: Hollins in place. EXTREMITIES: Moves all 4 extremities spontaneously. No edema, radial and dorsalis pedis pulses 2/4 bilaterally. No cyanosis. NEUROLOGICAL: Unable to name president or the correct year. Oriented to person and place as well as able to name upcoming holiday. Some intermittent difficulty with word finding. No focal neurological deficits. No facial droop. Slightly slurred speech. Cranial nerves II through XII grossly intact. PSYCH: Flat affect, normal mood. SKIN: Warm, dry, normal turgor. No rashes or lesions noted. Course - Re-evaluation Re-evalutation: 11/17/18 18:29 CBC shows leukocytosis at 13.3, venous blood gas unremarkable, CMP shows low sodium of 134.8, potassium elevated at 5.6, does not take exogenous potassium, likely due to her renal failure, will be given single dose of Veltassa. No EKG changes. CMP does show ongoing renal failure with a BUN of 35 and a creatinine of 1.43, no significant change from earlier in the month but significantly improved from June, lactic acid is normal, no evidence of sepsis, cardiac enzymes negative, urinalysis shows small blood and large leukocyte esterase, only 5 RBCs, no flank pain that would make me suspicious for an infected or obstructing stone. There is definitely orthostatic component to the patient's syncope, patient's blood pressure has also been steadily increasing since coming to the emergency department and not taking her afternoon dose of her medications, no further syncope while she has been here, patient has received a liter of fluid here. Patient will be started on antibiotics for her UTI in the form of Keflex, given a single dose of Veltassa, encouraged to follow-up to have her potassium rechecked as an outpatient in 1 week, continue follow-up with primary care or nephrology regarding her renal failure. New new neurologic symptoms or headache that would make me suspect rebleed. No indication for CT scan of the head at this point. - Vital Signs Vital signs: Temp Pulse Resp BP Pulse Ox 98.7 F 58 L 16 184/89 H 96 11/17/18 14:26 11/17/18 14:00 11/17/18 18:01 11/17/18 18:00 11/17/18 18:01 - Laboratory Result Diagrams: 11/17/18 14:33 11/17/18 14:33 Laboratory results interpreted by me: 11/17/18 11/17/18 11/17/18 14:00 14:33 14:33 WBC 13.3 H RBC 5.39 H MCV 75 L MCH 25.1 L RDW 16.2 H Seg Neutrophils % 87.2 H Lymphocytes % 6.9 L Absolute Neutrophils 11.6 H Sodium 134.8 L Potassium 5.6 H Carbon Dioxide 21 L BUN 35 H Creatinine 1.43 H Est GFR ( Amer) 45 L Est GFR (Non-Af Amer) 38 L Lactic Acid Direct Bilirubin 0.5 H Creatine Kinase < 20 L Urine Protein 100 H Urine Blood SMALL H Ur Leukocyte Esterase LARGE H 11/17/18 16:40 WBC RBC MCV MCH RDW Seg Neutrophils % Lymphocytes % Absolute Neutrophils Sodium Potassium Carbon Dioxide BUN Creatinine Est GFR ( Amer) Est GFR (Non-Af Amer) Lactic Acid < 0.5 L Direct Bilirubin Creatine Kinase Urine Protein Urine Blood Ur Leukocyte Esterase - EKG Interpretation by Me Additional EKG results interpreted by me: 11/17/18 18:30 EKG shows sinus bradycardia at a rate of 57,, no ST segment elevations, slight ST segment depressions in 1 and aVL L as well as V4 through V6, there are T wave inversions in this area as well per my interpretation. 11/17/18 19:43 Repeat EKG shows continued bradycardia with a rate of 54, still sinus rhythm, persistent T wave inversions in 1, aVL, V4 through V6, no worsening or im provement from prior. Suspect this is chronic related to the LVH per my interpretation. Discharge - Discharge Clinical Impression: Orthostatic syncope, Hyperkalemia Chronic renal failure Qualifiers: Chronic kidney disease stage: stage 3 (moderate) Qualified Code(s): N18.3 - Chronic kidney disease, stage 3 (moderate) Urinary tract infection Qualifiers: Urinary tract infection type: acute cystitis Hematuria presence: without hematuria Qualified Code(s): N30.00 - Acute cystitis without hematuria Condition: Stable Disposition: HOME, SELF-CARE Additional Instructions: You have a urinary tract infection. Please take your antibiotics as directed until they are gone. If we need to change the antibiotic we will call you when your culture finishes growing the bacteria. Today your potassium was elevated. We gave you medication to bring it down. Please have your potassium rechecked in 1 week. You do have some chronic renal failure. This is unchanged from approximately 2 weeks ago. It is very important that you follow-up with your primary care physician or paramedic instructor to continue to have this monitored. Please drink plenty of fluids. Please return to the emergency department for any new or concerning symptoms. Prescriptions: Cephalexin Monohydrate [Keflex 500 mg Capsule] 500 mg PO Q6H 5 Days capsule I personally performed the services described in the documentation, reviewed and edited the documentation which was dictated to the scribe in my presence, and it accurately records my words and actions.
== END 2018-11-17 20:02 | disposition home or self-care (01) ==
LOC: ER 13:03
DX: R55 Syncope and collapse (principal); N30.00 Acute cystitis without hematuria; I12.9 Hypertensive chronic kidney disease with stage 1 through stage 4 chronic kidney disease, or unspecified chronic kidney disease; N18.3 Chronic kidney disease, stage 3 (moderate); E87.5 Hyperkalemia; R00.1 Bradycardia, unspecified; R47.81 Slurred speech; R09.89 Other specified symptoms and signs involving the circulatory and respiratory systems; Z86.73 Personal history of transient ischemic attack (TIA), and cerebral infarction without residual deficits; Z87.891 Personal history of nicotine dependence
CPT/HCPCS: 93005; 99284; 96360; 36415; 87040; 87086; 82553; 82550; 85025; 87088; 80053; 81001; 84484; 87186; 82803; 83605; 93010; J7030; J3490

== ENCOUNTER 2019-03-07 10:32 | Emergency (ER) | payer MEDICAID ==
--- NOTE | 2019-03-07 11:26 | ER Document Report ---
ED Medical Screen (RME) - General Chief Complaint: Abnormal Lab Results Stated Complaint: ABNORMAL LABS Time Seen by Provider: 03/07/19 11:20 TRAVEL OUTSIDE OF THE [place] IN LAST 30 DAYS: No - HPI Notes: 03/07/19 11:24 Patient is a 59-year-old female with a history of CKD (no dialysis), hypertension, CVA, mental health disorder who presents per the direction of her family provider for elevated potassium at 6.4 two days ago. Patient states that she feels well overall otherwise. She is able to eat and drink without difficulty. She is urinating normally and having normal bowel movements. She has no other concerns or complaints. Denies JAMES, fever, neck pain, URI, CP, palpitations, syncope, SOB, Abd pain, n/v/d, muscle spasms, dysuria, back pain, or rash. I have treated and performed a rapid initial assessment of this patient. A comprehensive ED assessment and evaluation of the patient, analysis of test results and completion of medical decision making process will be conducted by additional ED providers. PHYSICAL EXAMINATION: GENERAL: Well-appearing, well-nourished and in no acute distress. A&Ox4. Answers questions appropriately. LUNGS: Breath sounds clear to auscultation bilaterally and equal. No wheezes rales or rhonchi. HEART: Regular rate and rhythm without murmurs, rubs, gallops. Extremities: No cyanosis, clubbing, or edema b/l. NEUROLOGICAL: Normal speech, normal gait. PSYCH: Normal mood, normal affect. - Related Data Allergies/Adverse Reactions: codeine Allergy (Verified 03/07/19 10:35) Past Medical History - Past Medical History Cardiac Medical History: Reports: Hx Hypertension Renal/ Medical History: Denies: Hx Peritoneal Dialysis Past Surgical History: Reports: Hx Breast Surgery - right breast removed, Hx Mastectomy - Right - Immunizations Immunizations up to date: Yes Hx Diphtheria, Pertussis, Tetanus Vaccination: Yes History of Influenza Vaccine for 05/2017 - 10/2017 Season: No Physical Exam - Vital signs Vitals: Temp Pulse Resp BP Pulse Ox 97.6 F 61 16 146/74 H 100 03/07/19 10:36 03/07/19 10:36 03/07/19 10:36 03/07/19 10:36 03/07/19 10:36 Course - Vital Signs Vital signs: Temp Pulse Resp BP Pulse Ox 97.6 F 61 16 146/74 H 100 03/07/19 10:36 03/07/19 10:36 03/07/19 10:36 03/07/19 10:36 03/07/19 10:36
[2019-03-07 12:07] LABS: ABSOLUTE BASOPHILS # (AUTO) 0.1 10^3/uL (0.0-0.2); ABSOLUTE EOSINOPHILS # (AUTO) 0.2 10^3/uL (0.0-0.6); ABSOLUTE LYMPHOCYTES (AUTO) 1.2 10^3/uL (0.5-4.7); ABSOLUTE MONOCYTES (AUTO) 0.7 10^3/uL (0.1-1.4); BASOPHILS % (AUTO) 1.4 % (0-2); EOSINOPHILS % (AUTO) 2.4 % (0-6); HEMATOCRIT 31.7 % (36.0-47.0); HEMOGLOBIN 10.6 g/dL (12.0-15.5); LYMPHOCYTES % (AUTO) 14.9 % (13-45); MEAN CORPUSCULAR HEMOGLOBIN 28.7 pg (27.0-33.4); MEAN CORPUSCULAR HGB CONC 33.6 g/dL (32.0-36.0); MEAN CORPUSCULAR VOLUME 85 fl (80-97); MONOCYTES % (AUTO) 8.3 % (3-13); PLATELET COUNT 316 10^3/uL (150-450); RED BLOOD COUNT 3.71 10^6/uL (3.72-5.28); RED CELL DISTRIBUTION WIDTH 14.7 % (11.5-14.0); TOTAL CELLS COUNTED % (AUTO) 100 %; WHITE BLOOD COUNT 8.2 10^3/uL (4.0-10.5)
[2019-03-07 12:26] LABS: ALANINE AMINOTRANSFERASE 16 U/L (9-52); ALBUMIN 4.2 g/dL (3.5-5.0); ALKALINE PHOSPHATASE 52 U/L (38-126); ANION GAP 9 (5-19); ASPARTATE AMINO TRANSFERASE 18 U/L (14-36); BILIRUBIN,DIRECT 0.3 mg/dL (0.0-0.4); BILIRUBIN,TOTAL 0.4 mg/dL (0.2-1.3); BLOOD UREA NITROGEN 49 mg/dL (7-20); CALCIUM 9.6 mg/dL (8.4-10.2); CARBON DIOXIDE 22 mmol/L (22-30); CHLORIDE 107 mmol/L (98-107); GLUCOSE 82 mg/dL (75-110); SODIUM 138.4 mmol/L (137-145); TOTAL PROTEIN 7.1 g/dL (6.3-8.2)
[2019-03-07] MEDS ORDERED: NORMAL SALINE 1000 ML 1,000 ML IV ONE (12:35)
[2019-03-07] MEDS ORDERED: ALBUTEROL SULFATE 0.083% NEB 2.5 MG/3 ML AMPUL NEB ONE (12:35)
--- NOTE | 2019-03-07 13:46 | EKG REPORT ---
SEVERITY:- ABNORMAL ECG - SINUS RHYTHM VENTRICULAR PREMATURE COMPLEX PROBABLE LEFT ATRIAL ABNORMALITY LVH WITH SECONDARY REPOLARIZATION ABNORMALITY BORDERLINE INFERIOR Q WAVES ABNORMAL T, PROBABLE ISCHEMIA, LATERAL LEADS : Confirmed by: Latrell Whitt MD 07-Mar-2019 13:45:03
[2019-03-07 14:41] LABS: APPEARANCE,URINE CLOUDY; BILIRUBIN,URINE NEGATIVE (NEGATIVE); COLOR,URINE YELLOW; GLUCOSE, URINE NEGATIVE (NEGATIVE); KETONES,URINE NEGATIVE (NEGATIVE); LEUKOCYTE ESTERASE,URINE LARGE (NEGATIVE); NITRITE,URINE POSITIVE (NEGATIVE); PROTEIN,URINE NEGATIVE (NEGATIVE); URINE SPECIFIC GRAVITY 1.011; UROBILINOGEN,URINE NEGATIVE mg/dL (<2.0)
[2019-03-07] MEDS ORDERED: ACETAMINOPHEN 325 MG TABLET PO ONE (14:58)
[2019-03-07] MEDS ORDERED: CEFTRIAXONE 1 GM/D5W RTU 1 GM/50 ML RTUPB IV ONE (14:59)
[2019-03-07] MEDS ORDERED: DEXTROSE 50%-WATER 25 GM/50 ML DISP.SYRIN IV ONE (15:20)
[2019-03-07] MEDS ORDERED: INSULIN REG, HUMAN 100 UNIT/ML 3 ML VIAL (PYX) IV ONE (15:20)
--- NOTE | 2019-03-07 15:25 | ER Document Report ---
ED General - General Chief Complaint: Abnormal Lab Results Stated Complaint: ABNORMAL LABS Time Seen by Provider: 03/07/19 11:20 Primary Care Provider: LLUVIA LAGUNAS MD [Primary Care Provider] - 03/10/19 Mode of Arrival: Ambulatory Information source: Patient Notes: Patient presents after having outpatient lab work 2 days ago that showed a potassium of 6.4. Patient states her doctor did stop her lisinopril 2 days ago and started her on Coreg. Patient complains of generalized muscle aches but states she has chronic pain after having a CVA. Patient does report some urinary frequency and states she had a UTI few weeks ago. Patient denies any fever nausea or vomiting. Patient denies any chest pain shortness of breath. Patient has a history of chronic kidney disease high blood pressure and recent CVA. Patient is still awaiting referral to nephrology. TRAVEL OUTSIDE OF THE [place] IN LAST 30 DAYS: No - HPI Onset: This morning Onset/Duration: Gradual Quality of pain: Achy Pain Level: 2 Associated symptoms: Body/muscle aches, Other - Urinary frequency. denies: Chest pain, Nonproductive cough, Productive cough, Diarrhea, Fever, Nausea, Vomiting Exacerbated by: Denies Relieved by: Denies Similar symptoms previously: No Recently seen / treated by doctor: Yes - Related Data Allergies/Adverse Reactions: codeine Allergy (Verified 03/07/19 10:35) Past Medical History - General Information source: Patient - Social History Smoking Status: Former Smoker Frequency of alcohol use: None Drug Abuse: None Occupation: None Lives with: Family Family History: Reviewed & Not Pertinent Patient has suicidal ideation: No Patient has homicidal ideation: No - Past Medical History Cardiac Medical History: Reports: Hx Hypertension Neurological Medical History: Reports: Hx Cerebrovascular Accident Renal/ Medical History: Reports: Hx Renal Insufficiency. Denies: Hx Peritoneal Dialysis Past Surgical History: Reports: Hx Breast Surgery - right breast removed, Hx Mastectomy - Right - Immunizations Immunizations up to date: Yes Hx Diphtheria, Pertussis, Tetanus Vaccination: Yes Review of Systems - Review of Systems Constitutional: No symptoms reported. denies: Fever, Recent illness EENT: No symptoms reported Cardiovascular: No symptoms reported. denies: Chest pain Respiratory: No symptoms reported. denies: Cough, Short of breath Gastrointestinal: No symptoms reported. denies: Abdominal pain, Nausea, Vomiting Genitourinary: Dysuria Female Genitourinary: No symptoms reported Musculoskeletal: Muscle pain Skin: No symptoms reported Hematologic/Lymphatic: No symptoms reported Neurological/Psychological: No symptoms reported Physical Exam - Vital signs Vitals: Temp Pulse Resp BP Pulse Ox 97.6 F 61 16 146/74 H 100 03/07/19 10:36 03/07/19 10:36 03/07/19 10:36 03/07/19 10:36 03/07/19 10:36 - General General appearance: Appears well, Alert In distress: None - HEENT Head: Normocephalic, Atraumatic Eyes: Normal Conjunctiva: Normal Nasal: Normal Mouth/Lips: Normal Mucous membranes: Normal Neck: Normal, Supple. No: Lymphadenopathy - Respiratory Respiratory status: No respiratory distress Chest status: Nontender Breath sounds: Normal. No: Rales, Rhonchi, Stridor, Wheezing Chest palpation: Normal - Cardiovascular Rhythm: Regular Heart sounds: S1 appreciated, S2 appreciated - Abdominal Inspection: Obese Distension: No distension Bowel sounds: Normal Tenderness: Nontender Organomegaly: No organomegaly - Back Back: Normal, Nontender. No: CVA tenderness - Neurological Cognition: Normal [place] Coma Scale Eye Opening: Spontaneous Kristine Coma Scale Verbal: Oriented [place] Coma Scale Motor: Obeys Commands Kristine Coma Scale Total: 15 - Psychological Associated symptoms: Normal mood - Skin Skin Temperature: Warm Skin Moisture: Dry Skin Color: Normal Course - Re-evaluation Re-evalutation: 03/07/19 15:[address] Villafana regarding patient presentation. Reviewed patient's history of previous renal function test results showing her documented worsening renal function as well as her elevated potassium here today. Recommends giving her a half amp of D50 with 5 units of regular insulin IV here today and a prescription for Kayexalate to give twice a day tomorrow only. Advises having patient see her primary doctor on Sunday for recheck. 03/07/19 18:36 Pt with downward trending potassium as well as provement of her renal function tests. Patient without any obstructive uropathy noted on CT scan. Will treat for UTI at this time and encourage follow-up with her primary doctor on Sunday for repeat labs. Patient states that she was recently taken off of lisinopril 2 days ago and switched to Coreg. Patient with mild elevation of potassium that can be reduced slowly on outpatient basis. Patient also advised that she will need to follow-up with nephrology given her persistent worsening chronic kidney disease. - Vital Signs Vital signs: Temp Pulse Resp BP Pulse Ox 97.6 F 70 16 139/77 H 97 03/07/19 10:36 03/07/19 19:01 03/07/19 19:01 03/07/19 19:01 03/07/19 19:01 - Laboratory Result Diagrams: 03/07/19 11:45 03/07/19 17:14 Laboratory results interpreted by me: 03/07/19 03/07/19 03/07/19 11:45 11:45 14:18 RBC 3.71 L Hgb 10.6 L Hct 31.7 L RDW 14.7 H Potassium 6.0 H* Chloride Carbon Dioxide BUN 49 H Creatinine 2.17 H Est GFR ( Amer) 28 L Est GFR (Non-Af Amer) 23 L Glucose Urine Nitrite POSITIVE H Ur Leukocyte Esterase LARGE H 03/07/19 17:14 RBC Hgb Hct RDW Potassium 5.5 H Chloride 109 H Carbon Dioxide 19 L BUN 47 H Creatinine 1.75 H Est GFR ( Amer) 36 L Est GFR (Non-Af Amer) 30 L Glucose 73 L Urine Nitrite Ur Leukocyte Esterase 03/07/19 18:38 Labs- Entire Visit 03/07/19 03/07/19 03/07/19 11:45 11:45 11:45 WBC 8.2 RBC 3.71 L Hgb 10.6 L Hct 31.7 L MCV 85 MCH 28.7 MCHC 33.6 RDW 14.7 H Plt Count 316 Seg Neutrophils % 73.0 Lymphocytes % 14.9 Monocytes % 8.3 Eosinophils % 2.4 Basophils % 1.4 Absolute Neutrophils 6.0 Absolute Lymphocytes 1.2 Absolute Monocytes 0.7 Absolute Eosinophils 0.2 Absolute Basophils 0.1 Sodium 138.4 Potassium 6.0 H* Chloride 107 Carbon Dioxide 22 Anion Gap 9 BUN 49 H Creatinine 2.17 H Est GFR ( Amer) 28 L Est GFR (Non-Af Amer) 23 L Glucose 82 Calcium 9.6 Magnesium 2.0 Total Bilirubin 0.4 Direct Bilirubin 0.3 Neonat Total Bilirubin Not Reportable Neonat Direct Bilirubin Not Reportable Neonat Indirect Bili Not Reportable AST 18 ALT 16 Alkaline Phosphatase 52 Total Protein 7.1 Albumin 4.2 Urine Color Urine Appearance Urine pH Ur Specific [place] Urine Protein Urine Glucose (UA) Urine Ketones Urine Blood Urine Nitrite Urine Bilirubin Urine Urobilinogen Ur Leukocyte Esterase Urine WBC (Auto) Urine RBC (Auto) U Hyaline Cast (Auto) Urine Bacteria (Auto) Urine WBC Clumps Squamous Epi Cells Auto Urine Mucus (Auto) Urine Ascorbic Acid 03/07/19 03/07/19 14:18 17:14 WBC RBC Hgb Hct MCV MCH MCHC RDW Plt Count Seg Neutrophils % Lymphocytes % Monocytes % Eosinophils % Basophils % Absolute Neutrophils Absolute Lymphocytes Absolute Monocytes Absolute Eosinophils Absolute Basophils Sodium 138.7 Potassium 5.5 H Chloride 109 H Carbon Dioxide 19 L Anion Gap 11 BUN 47 H Creatinine 1.75 H Est GFR ( Amer) 36 L Est GFR (Non-Af Amer) 30 L Glucose 73 L Calcium 8.7 Magnesium Total Bilirubin Direct Bilirubin Neonat Total Bilirubin Neonat Direct Bilirubin Neonat Indirect Bili AST ALT Alkaline Phosphatase Total Protein Albumin Urine Color YELLOW Urine Appearance CLOUDY Urine pH 5.0 Ur Specific [place] 1.011 Urine Protein NEGATIVE Urine Glucose (UA) NEGATIVE Urine Ketones NEGATIVE Urine Blood NEGATIVE Urine Nitrite POSITIVE H Urine Bilirubin NEGATIVE Urine Urobilinogen NEGATIVE Ur Leukocyte Esterase LARGE H Urine WBC (Auto) >182 Urine RBC (Auto) 6 U Hyaline Cast (Auto) 1 Urine Bacteria (Auto) 1+ Urine WBC Clumps MOD Squamous Epi Cells Auto 1 Urine Mucus (Auto) RARE Urine Ascorbic Acid NEGATIVE - Diagnostic Test Radiology reviewed: Reports reviewed - EKG Interpretation by Me EKG shows normal: Sinus rhythm Rhythm: PVC's Voltage: Consistant with LVH When compared to previous EKG there are: No significant change Additional EKG results interpreted by me: 03/07/19 15:31 No peaked T waves noted on EKG, QTC 437 Discharge - Discharge Clinical Impression: Hyperkalemia Chronic kidney disease Qualifiers: Chronic kidney disease stage: unspecified stage Qualified Code(s): N18.9 - Chronic kidney disease, unspecified UTI (urinary tract infection) Qualifiers: Urinary tract infection type: acute cystitis Hematuria presence: without hematuria Qualified Code(s): N30.00 - Acute cystitis without hematuria Condition: Stable Disposition: HOME, SELF-CARE Instructions: Kidney Failure ([facility]), Rocephin ([facility]), Urinary Tract Infection ([facility]) Additional Instructions: Return immediately for any new or worsening symptoms Followup with your primary care provider, call tomorrow to make a followup appointment Urine culture is pending, we will call if we need to change her antibiotics Take the Kayexalate tomorrow as prescribed. This medication will help decrease your potassium. Follow-up with your doctor on Sunday as they will need to repeat your chemistry panel to recheck your potassium level. Your doctor may need to add additional medications to help manage your elevated potassium. You will also need follow-up with a wheel lacer and truer for further evaluation of your chronic kidney disease. Prescriptions: Cefdinir 300 mg PO DAILY #10 capsule Sodium Polystyrene Sulfonate [Kayexalate 15 Gm/60 Ml Susp 60 Ml] 15 gm PO BID #2 bottle Referrals: LLUVIA LAGUNAS MD [Primary Care Provider] - 03/10/19
--- NOTE | 2019-03-07 17:14 | RADIOLOGY REPORT (SQ) ---
EXAM DESCRIPTION: CT ABD/PELVIS NO ORAL OR IV COMPLETED DATE/TIME: 03/07/2019 4:56 pm REASON FOR STUDY: UTI, Hx CKD, recent increase in BUN/CR COMPARISON: None. TECHNIQUE: CT scan of the abdomen and pelvis performed without intravenous or oral contrast. Images reviewed with lung, soft tissue, and bone windows. Reconstructed coronal and sagittal MPR images revi ewed. All images stored on PACS. All CT scanners at this facility use dose modulation, iterative reconstruction, and/or weight based d osing when appropriate to reduce radiation dose to as low as reasonably achievable (ALARA). [facility]: Dose Right [facility]: CareDose [facility]: Dose Right [facility]: Teradose 4D [facility]: [employer] RADIATION DOSE: CT Rad equipment meets quality standard of care and radiation dose reduction techniq ues were employed. CTDIvol: 6.6 mGy. DLP: 334 mGy-cm.mGy. LIMITATIONS: None. FINDINGS: LOWER CHEST: Minimal bibasilar atelectasis. NON-CONTRASTED LIVER, SPLEEN, ADRENALS: Evaluation limited by lack of IV contrast. No identified sign ificant masses. PANCREAS: No masses. No peripancreatic inflammatory changes. GALLBLADDER: No identified stones by CT criteria. No inflammatory changes to suggest cholecystitis. RIGHT KIDNEY AND URETER: No suspicious masses. Assessment limited by lack of IV contrast. No signif icant calcifications. No hydronephrosis or hydroureter. LEFT KIDNEY AND URETER: No suspicious masses. Assessment limited by lack of IV contrast. No signifi cant calcifications. No hydronephrosis or hydroureter. AORTA AND RETROPERITONEUM: No aneurysm. No retroperitoneal masses or adenopathy. BOWEL AND PERITONEAL CAVITY: Sigmoid colon diverticular disease. No obvious masses or inflammatory c hanges. No free fluid. APPENDIX: Located within the left upper quadrant. Normal. PELVIS, BLADDER, AND ABDOMINAL WALL:No abnormal masses. No free fluid. Bladder normal. BONES: Old healed posterior right rib fractures. OTHER: No other significant finding. IMPRESSION: NO SIGNIFICANT OR ACUTE PROCESS IN THE ABDOMEN OR PELVIS. COMMENT: Quality ID # [id number]: Final reports with documentation of one or more dose reduction techniques (e.g., Automated exposure control, adjustment of the mA and/or kV according to patient size, use of iterative reconstruction technique) TECHNICAL DOCUMENTATION: JOB ID: [id number]- All Rights Reserved Reading location - IP/workstation name: [email or web address]
[2019-03-07 18:07] LABS: ANION GAP 11 (5-19); BLOOD UREA NITROGEN 47 mg/dL (7-20); CALCIUM 8.7 mg/dL (8.4-10.2); CARBON DIOXIDE 19 mmol/L (22-30); CHLORIDE 109 mmol/L (98-107); GLUCOSE 73 mg/dL (75-110); POTASSIUM 5.5 mmol/L (3.6-5.0); SODIUM 138.7 mmol/L (137-145)
[2019-03-07 19:02] VITALS: BP 139/77
== END 2019-03-07 19:03 | disposition home or self-care (01) ==
LOC: ER 10:32
DX: E87.5 Hyperkalemia (principal); N30.00 Acute cystitis without hematuria; I12.9 Hypertensive chronic kidney disease with stage 1 through stage 4 chronic kidney disease, or unspecified chronic kidney disease; N18.9 Chronic kidney disease, unspecified; I49.3 Ventricular premature depolarization; M79.10 Myalgia, unspecified site; Z88.5 Allergy status to narcotic agent; Z87.891 Personal history of nicotine dependence
CPT/HCPCS: 93005; 94640; 99284; 96361; 96375; 96365; 36415; 87086; 83735; 85025; 87088; 80053; 81001; 87186; 74176; 93010; J3490 ×2; J1815; J7030; J0696

== ENCOUNTER 2019-04-17 13:44 | Observation (INO) | payer MEDICAID ==
--- NOTE | 2019-04-17 15:14 | ER Document Report ---
ED Medical Screen (RME) - General Chief Complaint: Urinary Retention Stated Complaint: URINARY PROBLEM Time Seen by Provider: 04/17/19 15:05 Primary Care Provider: LLUVIA LAGUNAS MD [Primary Care Provider] - Follow up as needed Information source: Patient Notes: Patient presents complaining of difficulty urinating for the past 6 days. Patient states that she has to sit on the toilet for several hours before she can void. Patient complains of no urination since early this morning and is requesting a catheter be placed. Patient reports a fever of 102 earlier this afternoon but she took Advil around 1230. Patient did see her doctor who advised her to come here for evaluation for possible UTI. Patient denies any nausea or vomiting. Patient complains of generalized body aches. hx: CVA, hypertension I have greeted and performed a rapid initial assessment of this patient. A comprehensive ED assessment and evaluation of the patient, analysis of test results and completion of the medical decision making process will be conducted by additional ED providers. TRAVEL OUTSIDE OF THE [place] IN LAST 30 DAYS: No - Related Data Allergies/Adverse Reactions: codeine Allergy (Verified 04/17/19 13:45) Past Medical History - Past Medical History Cardiac Medical History: Reports: Hx Hypertension Neurological Medical History: Reports: Hx Cerebrovascular Accident Renal/ Medical History: Reports: Hx Renal Insufficiency. Denies: Hx Peritoneal Dialysis Past Surgical History: Reports: Hx Breast Surgery - right breast removed, Hx Mastectomy - Right - Immunizations Immunizations up to date: Yes Hx Diphtheria, Pertussis, Tetanus Vaccination: Yes History of Influenza Vaccine for 05/2017 - 10/2017 Season: No Physical Exam - Vital signs Vitals: Temp Pulse Resp BP Pulse Ox 97.8 F 61 18 141/76 H 96 04/17/19 13:49 04/17/19 13:49 04/17/19 13:49 04/17/19 13:49 04/17/19 13:49 - Abdominal Tenderness: Tender - Lower pelvic Course - Vital Signs Vital signs: Temp Pulse Resp BP Pulse Ox 97.8 F 61 18 141/76 H 96 04/17/19 13:49 04/17/19 13:49 04/17/19 13:49 04/17/19 13:49 04/17/19 13:49 Doctor's Discharge - Discharge Referrals: LLUVIA LAGUNAS MD [Primary Care Provider] - Follow up as needed
[2019-04-17 16:02] LABS: ABSOLUTE EOSINOPHILS # (AUTO) 0.1 10^3/uL (0.0-0.6); ABSOLUTE LYMPHOCYTES (AUTO) 1.3 10^3/uL (0.5-4.7); ABSOLUTE MONOCYTES (AUTO) 1.6 10^3/uL (0.1-1.4); ABSOLUTE NEUT (AUTO) 12.3 10^3/uL (1.7-8.2); BASOPHILS % (AUTO) 0.2 % (0-2); EOSINOPHILS % (AUTO) 0.4 % (0-6); HEMATOCRIT 34.8 % (36.0-47.0); LYMPHOCYTES % (AUTO) 8.3 % (13-45); MEAN CORPUSCULAR HEMOGLOBIN 29.4 pg (27.0-33.4); MEAN CORPUSCULAR HGB CONC 34.5 g/dL (32.0-36.0); MEAN CORPUSCULAR VOLUME 85 fl (80-97); MONOCYTES % (AUTO) 10.5 % (3-13); PLATELET COUNT 275 10^3/uL (150-450); RED BLOOD COUNT 4.08 10^6/uL (3.72-5.28); RED CELL DISTRIBUTION WIDTH 12.5 % (11.5-14.0); SEGMENTED NEUTROPHILS % (AUTO) 80.6 % (42-78); TOTAL CELLS COUNTED % (AUTO) 100 %; WHITE BLOOD COUNT 15.3 10^3/uL (4.0-10.5)
--- NOTE | 2019-04-17 16:20 | ER Document Report ---
ED General - General Chief Complaint: Urinary Retention Stated Complaint: URINARY PROBLEM Time Seen by Provider: 04/17/19 15:05 Notes: Patient is a 59-year-old female who presents to the emergency department with a chief complaint of not being able to urinate. She states that whenever she sits on the toilet she only has a little bit come out. She states that she feels uncomfortable in her mid lower abdomen. She called her primary care provider and was told to come to the emergency department to get evaluated. Patient also states that she had a fever of 102 this afternoon and took Advil around 1230. She states that she just generally does not feel well and has body aches. Past medical history of hypertension, CVA, renal insufficiency, and right mastectomy. TRAVEL OUTSIDE OF THE [place] IN LAST 30 DAYS: No - Related Data Allergies/Adverse Reactions: codeine Allergy (Verified 04/17/19 13:45) Past Medical History - General Information source: Patient - Social History Smoking Status: Former Smoker Family History: Reviewed & Not Pertinent Patient has suicidal ideation: No Patient has homicidal ideation: No - Past Medical History Cardiac Medical History: Reports: Hx Hypertension Neurological Medical History: Reports: Hx Cerebrovascular Accident Renal/ Medical History: Reports: Hx Renal Insufficiency. Denies: Hx Peritoneal Dialysis Past Surgical History: Reports: Hx Breast Surgery - right breast removed, Hx Mastectomy - Right - Immunizations Immunizations up to date: Yes Hx Diphtheria, Pertussis, Tetanus Vaccination: Yes Review of Systems - Review of Systems Notes: REVIEW OF SYSTEMS: CONSTITUTIONAL : Denies recent illness. Denies recent unintentional weight loss. Denies fever, chills, or sweats. EENT: Denies eye, ear, throat, or mouth pain, discharge, or symptoms. Denies nasal or sinus congestion. CARDIOVASCULAR: Denies chest pain. RESPIRATORY: Denies shortness of breath, cough, congestion, difficulty itzel athing, or wheezing. GASTROINTESTINAL: Denies nausea, vomiting, and diarrhea. Denies abdominal pain. Denies constipation. GENITOURINARY: See HPI MUSCULOSKELETAL: Denies neck and back pain. Denies joint pain or swelling. SKIN: Denies rash, itchiness, or lesions HEMATOLOGIC : Denies easy bruising or bleeding. LYMPHATIC: Denies swollen, painful, enlarged glands. NEUROLOGICAL: Denies no numbness or tingling denies weakness. Denies headache. Denies altered mental status. Denies alteration in speech. PSYCHIATRIC: Denies stress, anxiety, alteration in sleep patterns, or depression. All other systems reviewed and negative. Physical Exam - Vital signs Vitals: Temp Pulse Resp BP Pulse Ox 97.8 F 61 18 141/76 H 96 04/17/19 13:49 04/17/19 13:49 04/17/19 13:49 04/17/19 13:49 04/17/19 13:49 - Notes Notes: PHYSICAL EXAMINATION: GENERAL: Appears well, healthy, well-nourished, no acute distress. HEAD: Normocephalic, atraumatic. EYES: PERRL, conjunctiva normal, all extraocular movements intact, sclera nonicteric ENT: Moist mucous membranes. NECK: Supple, no noticeable swelling, redness, rash. Normal range of motion. LUNGS: Equal breath sounds bilaterally and clear to auscultation. No wheezes rales or rhonchi. CARDIOVASCULAR: S1-S2, regular rate, regular rhythm. Radial pulses 2+, normal. ABDOMEN: Normoactive bowel sounds. Soft, nontender, no guarding, no rebound tenderness, and no masses palpated. EXTREMITIES: Normal strength and range of motion, no pitting or edema. No cyanosis. NEUROLOGICAL: Moves all extremities upon command. Strength 5/5 in all extremities. PSYCH: Normal mood, normal affect. SKIN: Warm, dry. No rash, lesions, ulcerations noted. Normal skin turgor. Course - Re-evaluation Re-evalutation: 04/17/19 16:20 Bedside ultrasound was done and patient has a large amount of urine in her bladder via ultrasound. Spoke with PCT and patient will have Constantino catheter placed. 04/17/19 17:15 The PCT reported to me that the patient had an output of 500 mL's of urine. 04/17/19 18:05 Patient is a white blood cell count of 15,300. Her urine is actually unremarkable at this time. Her chemistries show that she has an acute kidney injury of creatinine with a creatinine of 2.16. She will receive a liter of fluids. 04/17/19 18:[address] Angel, the patient will be admitted to the telemetry unit. - Vital Signs Vital signs: Temp Pulse Resp BP Pulse Ox 97.8 F 61 13 202/73 H 99 04/17/19 13:49 04/17/19 13:49 04/17/19 19:03 04/17/19 19:03 04/17/19 18:00 - Laboratory Result Diagrams: 04/17/19 15:52 04/17/19 15:52 Laboratory results interpreted by me: 04/17/19 04/17/19 15:52 15:52 WBC 15.3 H Hct 34.8 L Lymph % (Auto) 8.3 L Absolute Neuts (auto) 12.3 H Absolute Monos (auto) 1.6 H Seg Neutrophils % 80.6 H Sodium 136.4 L BUN 45 H Creatinine 2.16 H Est GFR ( Amer) 28 L Est GFR (MDRD) Non-Af 23 L Creatine Kinase 27 L Discharge - Discharge Clinical Impression: Acute kidney injury Fever Qualifiers: Fever type: unspecified Qualified Code(s): R50.9 - Fever, unspecified Condition: Stable Disposition: ADMITTED INPATIENT Admitting Provider: Jeanne (Hospitalist) Unit Admitted: Telemetry
[2019-04-17 16:22] LABS: ALBUMIN 4.4 g/dL (3.5-5.0); ALKALINE PHOSPHATASE 67 U/L (38-126); ANION GAP 15 (5-19); ASPARTATE AMINO TRANSFERASE 16 U/L (14-36); BILIRUBIN,DIRECT 0.4 mg/dL (0.0-0.4); BILIRUBIN,TOTAL 0.4 mg/dL (0.2-1.3); BLOOD UREA NITROGEN 45 mg/dL (7-20); CALCIUM 9.7 mg/dL (8.4-10.2); CARBON DIOXIDE 22 mmol/L (22-30); CHLORIDE 99 mmol/L (98-107); CREATINE KINASE 27 U/L (30-135); GLUCOSE 90 mg/dL (75-110); POTASSIUM 4.7 mmol/L (3.6-5.0); TOTAL PROTEIN 7.5 g/dL (6.3-8.2)
[2019-04-17 16:24] LABS: APPEARANCE,URINE CLEAR; BILIRUBIN,URINE NEGATIVE (NEGATIVE); COLOR,URINE YELLOW; GLUCOSE, URINE NEGATIVE (NEGATIVE); KETONES,URINE NEGATIVE (NEGATIVE); LEUKOCYTE ESTERASE,URINE NEGATIVE (NEGATIVE); NITRITE,URINE NEGATIVE (NEGATIVE); PROTEIN,URINE NEGATIVE (NEGATIVE); URINE SPECIFIC GRAVITY 1.012; UROBILINOGEN,URINE NEGATIVE mg/dL (<2.0)
[2019-04-17] MEDS ORDERED: NORMAL SALINE 1000 ML 1,000 ML IV ONE (18:05)
--- NOTE | 2019-04-17 18:43 | RADIOLOGY REPORT (SQ) ---
EXAM DESCRIPTION: CHEST SINGLE VIEW COMPLETED DATE/TIME: 04/17/2019 6:26 pm REASON FOR STUDY: elevated COMPARISON: None. EXAM PARAMETERS: NUMBER OF VIEWS: One view. TECHNIQUE: Single frontal radiographic view of the chest acquired. RADIATION DOSE: NA LIMITATIONS: None. FINDINGS: LUNGS AND PLEURA: No opacities, masses or pneumothorax. No pleural effusion. MEDIASTINUM AND HILAR STRUCTURES: No masses. Contour normal. HEART AND VASCULAR STRUCTURES: Heart normal in size. Normal vasculature. BONES: No acute findings. HARDWARE: None in the chest. OTHER: No other significant finding. IMPRESSION: NO ACUTE RADIOGRAPHIC FINDING IN THE CHEST. TECHNICAL DOCUMENTATION: JOB ID: [id number] [employer]- All Rights Reserved Reading location - IP/workstation name: [email or web address]
[2019-04-17] MEDS ORDERED: HYDRALAZINE HCL INJ/PF 20 MG/1 ML SDV IV PRN (18:48)
[2019-04-17] MEDS ORDERED: ACETAMINOPHEN 325 MG TABLET PO PRN (18:51)
[2019-04-17] MEDS: CEFTRIAXONE 1 GM/D5W RTU 1 GM/50 ML RTUPB IV SCH (18:57)
--- NOTE | 2019-04-17 19:02 | ADVANCED CARE ---
- Diagnosis (1) Acute kidney injury Diagnosis Current: Yes (2) Acute urinary retention Diagnosis Current: Yes (3) Hypertension Diagnosis Current: Yes (4) Leukocytosis Diagnosis Current: Yes Resuscitation Status: Full Code Discussion: The patient says that she is a full code and that she prefers to receive chest compressions, defibrillation or mechanical ventilation if the need arises. She does express she does not want to be on long-term ventilation. She says that her daughter, Syeda Coon is her surrogate medical decision maker.
--- NOTE | 2019-04-17 19:02 | PDOC H&P ---
History of Present Illness Admission Date/PCP: LLUVIA LAGUNAS MD Patient complains of: fever, difficulty urinating History of Present Illness: KYLAH EVANS is a 59 year old female with a past medical history of hypertension and history of CVA who presented with fever and problems urinating. Patient says that she has been having difficulty passing out urine in the past 6 days. She says she did have some dysuria but it was mostly her trying to have a sense of urgency but unable to completely void. She says that she would feel her bladder getting distended and would have some overflow after 3 to 4 hours. She does say that she had some associated fever for the past week. She denies abdominal pain. Denies nausea or vomiting or diarrhea. In the ER, she was noted to have acute renal failure. She was also noted to have leukocytosis. Past Medical History Cardiac Medical History: Reports: Hypertension Past Surgical History Past Surgical History: Reports: Mastectomy - Right Social History Smoking Status: Former Smoker Family History Family History: Reviewed & Not Pertinent Parental Family History Reviewed: Yes - No premature CAD Children Family History Reviewed: No Sibling(s) Family History Reviewed.: No Medication/Allergy Home Medications: Metoprolol Tartrate [Lopressor 50 mg Tablet] 50 mg PO BID #60 tablet 07/15/18 Cephalexin Monohydrate [Keflex 500 mg Capsule] 500 mg PO Q6H 5 Days capsule 11/17/18 Cefdinir 300 mg PO DAILY #10 capsule 03/07/19 Sodium Polystyrene Sulfonate [Kayexalate 15 Gm/60 Ml Susp 60 Ml] 15 gm PO BID #2 bottle 03/07/19 Allergies/Adverse Reactions: codeine Allergy (Verified 04/17/19 13:45) Review of Systems All systems: reviewed and no additional remarkable complaints except as stated - As mentioned in HPI Physical Exam Vital Signs: Temp Pulse Resp BP Pulse Ox 97.8 F 61 18 141/76 H 96 04/17/19 13:49 04/17/19 13:49 04/17/19 13:49 04/17/19 13:49 04/17/19 13:49 Intake & Output 04/16/19 04/17/19 04/18/19 06:59 06:59 06:59 Weight 147 lb 14.883 oz Results Laboratory Results: 04/17/19 15:52 04/17/19 15:52 04/17/19 04/17/19 04/17/19 15:52 15:52 16:00 WBC 15.3 H RBC 4.08 Hgb 12.0 Hct 34.8 L MCV 85 MCH 29.4 MCHC 34.5 RDW 12.5 Plt Count 275 Seg Neutrophils % 80.6 H Sodium 136.4 L Potassium 4.7 Chloride 99 Carbon Dioxide 22 Anion Gap 15 BUN 45 H Creatinine 2.16 H Est GFR ( Amer) 28 L Glucose 90 Calcium 9.7 Total Bilirubin 0.4 AST 16 Alkaline Phosphatase 67 Total Protein 7.5 Albumin 4.4 Urine Color YELLOW Urine Appearance CLEAR Urine pH 5.0 Ur Specific [place] 1.012 Urine Protein NEGATIVE Urine Glucose (UA) NEGATIVE Urine Ketones NEGATIVE Urine Blood NEGATIVE Urine Nitrite NEGATIVE Ur Leukocyte Esterase NEGATIVE Urine WBC (Auto) 3 Urine RBC (Auto) 1 04/17/19 15:52 Creatine Kinase 27 L Impressions: Chest X-Ray 04/17/19 18:08 IMPRESSION: NO ACUTE RADIOGRAPHIC FINDING IN THE CHEST. Assessment and Plan - Diagnosis (1) Acute kidney injury Is this a current diagnosis for this admission?: Yes Plan: We will start patient on IV fluids. Recheck BMP. Will pursue a CT of the abdomen and pelvis. (2) Acute urinary retention Is this a current diagnosis for this admission?: Yes Plan: Urinalysis only shows a WBC of 4. Will proceed with a CT to rule out any obstruction or structural cause. (3) Hypertension Is this a current diagnosis for this admission?: Yes Plan: Resume home meds once verified. (4) Leukocytosis Is this a current diagnosis for this admission?: Yes - Time Time Spent with patient: 25-34 minutes
[2019-04-17] MEDS: GABAPENTIN 100 MG CAPSULE PO SCH (20:16)
--- NOTE | 2019-04-17 20:16 | RADIOLOGY REPORT (SQ) ---
EXAM DESCRIPTION: CT ABDOMEN PELVIS WITHOUT IV CONTRAST COMPLETED DATE/TME: 04/17/2019 18:49 CLINICAL HISTORY: 59 years, Female, acute renal failure, acute retention COMPARISON: Prior study from 03/07/2019 TECHNIQUE: Noncontrast CT of the abdomen/pelvis was performed. Coronal and sagittal reformations are provided. Images stored on PACS. All CT scanners at this facility use dose modulation, iterative reconstruction, and/or weight based dosing when appropriate to reduce radiation dose to as low as reasonably achievable (ALARA). [facility]: Dose Right [facility]: CareDose [facility]: Dose Right [facility]: Teradose 4D [facility]: MogiMe LIMITATIONS: None. FINDINGS: Limited evaluation of the lower chest reveals a 0.6 cm solid nodule located within the right middle lobe on image four of series 4. Otherwise, bands of opacity are noted about both lung bases, indicating areas of atelectasis or scar. Tiny hiatal hernia is noted. The liver, spleen, pancreas, gallbladder, and both adrenal glands appear normal. Both kidneys are normal in their noncontrast appearance. There is no hydronephrosis or hydroureter. The urinary bladder is collapsed given the presence of a Constantino catheter. Is also appears to contain a small focus of gas density, likely iatrogenic. Scattered colonic diverticula are noted, particularly about the sigmoid segment. There is associated circumferential wall thickening about the segment of colon, unchanged from the previous study dated 03/07/2019 and most likely indicating muscular hypertrophy. Small and large bowel are otherwise normal in caliber without areas of suspicious focal wall thickening. No evidence of bowel obstruction. The appendix is normal, actually located within the left upper quadrant. Uterus and both ovaries show no suspicious finding. There is likely a small amount of gas density within the vagina. Calcifications are evident about the abdominal aorta and proximal iliac vessels. There is mild aneurysmal dilatation of the infrarenal abdominal aorta measuring up to 2.9 x 3.0 cm in size on image 33 of series 3. This is unchanged. Bone windows show no destructive osseous lesions. IMPRESSION: No acute abnormality within the abdomen or pelvis. 3.0 cm abdominal aortic aneurysm. Recommend follow-up every 3 years. Reference: J Am Evin Radiol 2013;10:789-794. 6.0 mm solid pulmonary nodule detected on incomplete chest CT. Recommend a non-contrast Chest CT at 6-12 months, then consider an additional non-contrast Chest CT at 18-24 months. These guidelines do not apply to immunocompromised patients and patients with cancer. Follow up in patients with significant comorbidities as clinically warranted. For lung cancer screening, adhere to Lung-RADS guidelines. Reference: Radiology. 2017; 284(1):228-43. TECHNICAL DOCUMENTATION: Quality ID # 436: Final reports with documentation of one or more dose reduction techniques (e.g., Automated exposure control, adjustment of the mA and/or kV according to patient size, use of iterative reconstruction technique) copyright 2011 [employer]- All Rights Reserved
[2019-04-17] MEDS: HEPARIN SOD (PORCINE) 5,000 UNIT/ML 1 ML VIAL SUBCUT SCH (21:11)
[2019-04-17] MEDS: NORMAL SALINE 1000 ML 1,000 ML IV PRN (21:11)
--- NOTE | 2019-04-17 23:38 | EKG REPORT ---
SEVERITY:- ABNORMAL ECG - SINUS RHYTHM PROBABLE LEFT ATRIAL ABNORMALITY LVH WITH SECONDARY REPOLARIZATION ABNORMALITY ABNORMAL T, PROBABLE ISCHEMIA, LATERAL LEADS : Confirmed by: Latrell Whitt MD 17-Apr-2019 23:38:24
[2019-04-18] MEDS ORDERED: TRAZODONE HCL 50 MG TABLET PO ONE (01:00)
[2019-04-18] MEDS: GABAPENTIN 100 MG CAPSULE PO SCH ×3 (05:29→19:50)
[2019-04-18 08:02] LABS: ABSOLUTE BASOPHILS # (AUTO) 0.1 10^3/uL (0.0-0.2); ABSOLUTE EOSINOPHILS # (AUTO) 0.1 10^3/uL (0.0-0.6); ABSOLUTE LYMPHOCYTES (AUTO) 1.1 10^3/uL (0.5-4.7); ABSOLUTE MONOCYTES (AUTO) 0.9 10^3/uL (0.1-1.4); ABSOLUTE NEUT (AUTO) 8.3 10^3/uL (1.7-8.2); BASOPHILS % (AUTO) 0.9 % (0-2); EOSINOPHILS % (AUTO) 0.9 % (0-6); HEMOGLOBIN 10.7 g/dL (12.0-15.5); LYMPHOCYTES % (AUTO) 10.3 % (13-45); MEAN CORPUSCULAR HEMOGLOBIN 29.2 pg (27.0-33.4); MEAN CORPUSCULAR HGB CONC 34.6 g/dL (32.0-36.0); MEAN CORPUSCULAR VOLUME 84 fl (80-97); MONOCYTES % (AUTO) 8.3 % (3-13); PLATELET COUNT 238 10^3/uL (150-450); RED BLOOD COUNT 3.68 10^6/uL (3.72-5.28); RED CELL DISTRIBUTION WIDTH 12.6 % (11.5-14.0); SEGMENTED NEUTROPHILS % (AUTO) 79.6 % (42-78); TOTAL CELLS COUNTED % (AUTO) 100 %; WHITE BLOOD COUNT 10.5 10^3/uL (4.0-10.5)
[2019-04-18 08:25] LABS: ANION GAP 12 (5-19); BLOOD UREA NITROGEN 34 mg/dL (7-20); CALCIUM 8.9 mg/dL (8.4-10.2); CARBON DIOXIDE 19 mmol/L (22-30); CHLORIDE 105 mmol/L (98-107); GLUCOSE 150 mg/dL (75-110); POTASSIUM 4.3 mmol/L (3.6-5.0)
[2019-04-18] MEDS: HEPARIN SOD (PORCINE) 5,000 UNIT/ML 1 ML VIAL SUBCUT SCH ×2 (09:28→21:02)
[2019-04-18] MEDS: CEFTRIAXONE 1 GM/D5W RTU 1 GM/50 ML RTUPB IV SCH (09:39)
[2019-04-18] MEDS: CARVEDILOL 6.25 MG TABLET PO SCH ×2 (09:42→21:03)
[2019-04-18] MEDS: NORMAL SALINE 1000 ML 1,000 ML IV PRN (10:31)
--- NOTE | 2019-04-18 12:02 | PDOC PROGRESS REPORT ---
Subjective Progress Note for:: 04/18/19 Subjective:: This is a 59 year old female with a past medical history of hypertension and history of CVA who presented with fever and problems urinating. She was also noted to be in acute renal failure. She was started on IV fluids. No acute event overnight. No fever or chills. Creatinine has improved with IV fluid overnight. She has indwelling Constantino. We will try to remove Constantino and did not see if she would continue to have urinary retention. She denies any chest pain or shortness of breath. She does complain of generalized pain all over her body going on for several months and says that this is been chronic but could not describe the nature of pain. She is asking if I could give her a prescription for Vicodin when she gets discharged. Reason For Visit: ACUTE RENAL FAILURE Physical Exam Vital Signs: Temp Pulse Resp BP Pulse Ox 98.4 F 82 18 123/90 H 97 04/18/19 08:00 04/18/19 08:00 04/18/19 08:00 04/18/19 08:00 04/18/19 08:00 Intake & Output 04/17/19 04/18/19 04/19/19 06:59 06:59 06:59 Intake Total 1650 Output Total 1550 Balance 100 Weight 127 lb 13.89 oz General appearance: PRESENT: no acute distress, well-developed, well-nourished Head exam: PRESENT: atraumatic, normocephalic Eye exam: PRESENT: conjunctiva pink, EOMI, PERRLA. ABSENT: scleral icterus Ear exam: PRESENT: normal external ear exam Mouth exam: PRESENT: moist, tongue midline Neck exam: ABSENT: carotid bruit, JVD, lymphadenopathy, thyromegaly Respiratory exam: PRESENT: clear to auscultation evens. ABSENT: rales, rhonchi, wheezes Cardiovascular exam: PRESENT: RRR. ABSENT: diastolic murmur, rubs, systolic murmur Pulses: PRESENT: normal dorsalis pedis pul GI/Abdominal exam: PRESENT: normal bowel sounds, soft. ABSENT: distended, guarding, mass, organolmegaly, rebound, tenderness Rectal exam: PRESENT: deferred Extremities exam: PRESENT: full ROM. ABSENT: calf tenderness, clubbing, pedal edema Neurological exam: PRESENT: alert, awake, oriented to person, oriented to place, oriented to time, oriented to situation, CN II-XII grossly intact. ABSENT: motor sensory deficit Results Laboratory Results: 04/18/19 07:51 04/18/19 07:51 04/17/19 04/17/19 04/17/19 15:52 15:52 16:00 WBC 15.3 H RBC 4.08 Hgb 12.0 Hct 34.8 L MCV 85 MCH 29.4 MCHC 34.5 RDW 12.5 Plt Count 275 Seg Neutrophils % 80.6 H Sodium 136.4 L Potassium 4.7 Chloride 99 Carbon Dioxide 22 Anion Gap 15 BUN 45 H Creatinine 2.16 H Est GFR ( Amer) 28 L Glucose 90 Calcium 9.7 Total Bilirubin 0.4 AST 16 Alkaline Phosphatase 67 Total Protein 7.5 Albumin 4.4 Urine Color YELLOW Urine Appearance CLEAR Urine pH 5.0 Ur Specific [place] 1.012 Urine Protein NEGATIVE Urine Glucose (UA) NEGATIVE Urine Ketones NEGATIVE Urine Blood NEGATIVE Urine Nitrite NEGATIVE Ur Leukocyte Esterase NEGATIVE Urine WBC (Auto) 3 Urine RBC (Auto) 1 04/18/19 04/18/19 07:51 07:51 WBC 10.5 RBC 3.68 L Hgb 10.7 L Hct 31.0 L MCV 84 MCH 29.2 MCHC 34.6 RDW 12.6 Plt Count 238 Seg Neutrophils % 79.6 H Sodium 136.4 L Potassium 4.3 Chloride 105 Carbon Dioxide 19 L Anion Gap 12 BUN 34 H Creatinine 1.65 H Est GFR ( Amer) 38 L Glucose 150 H Calcium 8.9 Total Bilirubin AST Alkaline Phosphatase Total Protein Albumin Urine Color Urine Appearance Urine pH Ur Specific [place] Urine Protein Urine Glucose (UA) Urine Ketones Urine Blood Urine Nitrite Ur Leukocyte Esterase Urine WBC (Auto) Urine RBC (Auto) 04/17/19 15:52 Creatine Kinase 27 L Impressions: Chest X-Ray 04/17/19 18:08 IMPRESSION: NO ACUTE RADIOGRAPHIC FINDING IN THE CHEST. Abdomen/Pelvis CT 04/17/19 18:49 IMPRESSION: No acute abnormality within the abdomen or pelvis. 3.0 cm abdominal aortic aneurysm. Recommend follow-up every 3 years. Reference: J Am Evin Radiol 2013;10:789-794. 6.0 mm solid pulmonary nodule detected on incomplete chest CT. Recommend a non-contrast Chest CT at 6-12 months, then consider an additional non-contrast Chest CT at 18-24 months. These guidelines do not apply to immunocompromised patients and patients with cancer. Follow up in patients with significant comorbidities as clinically warranted. For lung cancer screening, adhere to Lung-RADS guidelines. Reference: Radiology. 2017; 284(1):228-43. TECHNICAL DOCUMENTATION: Quality ID # 436: Final reports with documentation of one or more dose reduction techniques (e.g., Automated exposure control, adjustment of the mA and/or kV according to patient size, use of iterative reconstruction technique) copyright 2011 [employer]- All Rights Reserved Assessment and Plan - Diagnosis (1) Acute kidney injury Is this a current diagnosis for this admission?: Yes Plan: Improving with IV fluids. CT of the abdomen/pelvis was onyl remarkable for incidental aortic aneurysm and pulmonary nodule. (2) Acute urinary retention Is this a current diagnosis for this admission?: Yes Plan: Urinalysis only shows a WBC of 4. CT abd/pelvis unremarkable. We will try to remove Constantino and did not see if she would continue to have urinary retention. (3) Hypertension Is this a current diagnosis for this admission?: Yes Plan: Continue Coreg. Resume atenolol/HCTZ. (4) Leukocytosis Is this a current diagnosis for this admission?: Yes Plan: Resolved. Cultures pending. - Time Time Spent with patient: 25-34 minutes
[2019-04-18 13:02] LABS: URINE AMPHETAMINES SCREEN NEGATIVE; URINE BARBITURATES SCREEN NEGATIVE; URINE BENZODIAZEPINES SCREEN NEGATIVE; URINE COCAINE SCREEN NEGATIVE; URINE MARIJUANA (THC) SCREEN NEGATIVE; URINE METHADONE SCREEN NEGATIVE; URINE PHENCYCLIDINE SCREEN NEGATIVE
--- NOTE | 2019-04-18 13:51 | RADIOLOGY REPORT (SQ) ---
EXAM DESCRIPTION: SHOULDER RIGHT 2 OR MORE VIEWS COMPLETED DATE/TIME: 04/18/2019 1:39 pm REASON FOR STUDY: right shoulder pain COMPARISON: None. NUMBER OF VIEWS: Three views. TECHNIQUE: Internal rotation, external rotation, and Y view images acquired of the right shoulder. LIMITATIONS: None. FINDINGS: MINERALIZATION: Normal. BONES: No acute fracture. No worrisome bone lesions. JOINTS: Degenerative changes are present in glenohumeral joint and AC joint. Humeral sits slightly h igh in position which could represent chronic rotator cuff injury. VISUALIZED LUNGS AND RIBS: No acute rib fracture. No pneumothorax. SOFT TISSUES: No radiopaque foreign body. OTHER: No other significant finding. IMPRESSION: Mild degenerative changes. No acute findings. TECHNICAL DOCUMENTATION: JOB ID: [id number] [employer]- All Rights Reserved Reading location - IP/workstation name: [email or web address]
[2019-04-18] MEDS ORDERED: TRAZODONE HCL 50 MG TABLET PO SCH (22:00)
[2019-04-19] MEDS: GABAPENTIN 100 MG CAPSULE PO SCH ×2 (02:20→10:14)
[2019-04-19] MEDS: NORMAL SALINE 1000 ML 1,000 ML IV PRN (06:47)
[2019-04-19 09:12] VITALS: BP 150/60
[2019-04-19] MEDS: HEPARIN SOD (PORCINE) 5,000 UNIT/ML 1 ML VIAL SUBCUT SCH (09:29)
[2019-04-19] MEDS: CARVEDILOL 6.25 MG TABLET PO SCH (09:29)
[2019-04-19] MEDS: CEFTRIAXONE 1 GM/D5W RTU 1 GM/50 ML RTUPB IV SCH (09:29)
[2019-04-19 09:52] LABS: ANION GAP 10 (5-19); BLOOD UREA NITROGEN 29 mg/dL (7-20); CARBON DIOXIDE 19 mmol/L (22-30); CHLORIDE 108 mmol/L (98-107); GLUCOSE 125 mg/dL (75-110); POTASSIUM 4.4 mmol/L (3.6-5.0)
[2019-04-19] MEDS ORDERED: ATENOLOL 50 MG TABLET PO SCH (10:00)
[2019-04-19] MEDS ORDERED: (PENDING PHARMACY ID) (Oxybutynin Chloride [Oxybutynin Chloride Er] 10 MG) PO SCH (10:00)
[2019-04-19] MEDS ORDERED: CHLORTHALIDONE 25 MG TABLET PO SCH (10:00)
[2019-04-19] MEDS ORDERED: OXYBUTYNIN CHLORIDE 5 MG TABLET PO SCH (11:00)
--- NOTE | 2019-04-20 17:03 | PDOC DISCHARGE SUMMARY ---
General - Admit/Disc Date/PCP Admission Date/Primary Care Provider: 04/17/19 18:55 LLUVIA LAGUNAS MD Discharge Date: 04/20/19 - Discharge Diagnosis (1) Acute kidney injury Is this a current diagnosis for this admission?: Yes (2) Acute urinary retention Is this a current diagnosis for this admission?: Yes (3) Hypertension Is this a current diagnosis for this admission?: Yes (4) Leukocytosis Is this a current diagnosis for this admission?: Yes - Additional Information Resuscitation Status: Full Code Discharge Diet: Cardiac Discharge Activity: Activity As Tolerated Prescriptions: Amoxicillin/Potassium Clav [Augmentin 500-125 Tablet] 1 each PO BID 5 Days #10 tablet Gabapentin [Neurontin 100 mg Capsule] 200 mg PO Q8H PRN #30 capsule PRN Reason: Home Medications: Atenolol/Chlorthalidone [Atenolol-Chlorthalidone 50-25mg Tablet] 1 tab PO DAILY 04/17/19 Carvedilol [Coreg 6.25 mg Tablet] 6.25 mg PO Q12 04/17/19 Gabapentin [Neurontin 300 mg Capsule] 300 mg PO Q12 04/17/19 Lisinopril [Prinivil] 20 mg PO DAILY 04/17/19 Trazodone HCl [Desyrel 50 mg Tablet] 50 mg PO DAILY 04/17/19 Amoxicillin/Potassium Clav [Augmentin 500-125 Tablet] 1 each PO BID 5 Days #10 tablet 04/19/19 Gabapentin [Neurontin 100 mg Capsule] 200 mg PO Q8H PRN #30 capsule 04/19/19 Oxybutynin Chloride [Oxybutynin Chloride ER] 10 mg PO DAILY 04/19/19 History of Present Illness History of Present Illness: KYLAH EVANS is a 59 year old female with a past medical history of hypertension and history of CVA who presented with fever and problems urinating. Patient says that she has been having difficulty passing out urine in the past 6 days. She says she did have some dysuria but it was mostly her trying to have a sense of urgency but unable to completely void. She says that she would feel her bladder getting distended and would have some overflow after 3 to 4 hours. She does say that she had some associated fever for the past week. She denies abdominal pain. Denies nausea or vomiting or diarrhea. Hospital Course Hospital Course: This is a 59 year old female with a past medical history of hypertension and history of CVA who presented with fever and problems urinating. She was also noted to be in acute renal failure. She was started on IV fluids. Creatinine has improved with IV fluid overnight. Her creatinine returned to baseline. Her Constantino catheter was Remove urinate without any issues. No issues with urinary retention. Chronic right shoulder pain as well. Chest x-ray was done and showed possible rotator cuff injury. She was given an appointment outpatient with orthopedics to get further recommendations for this. She was also offered home PT at home but she refused these services. Her urinalysis only showed a WBC of 4 however she did complain of urinary urgency and dysuria. Urine culture grew E. coli hence she was given a prescription for Augmentin. Physical Exam Vital Signs: Temp Pulse Resp BP Pulse Ox 98.1 F 68 17 150/60 H 96 04/19/19 10:34 04/19/19 10:34 04/19/19 10:34 04/19/19 10:34 04/19/19 10:34 Intake & Output 04/19/19 04/20/19 04/21/19 06:59 06:59 06:59 Intake Total 3666 Output Total 1250 Balance 2416 Weight 125 lb 3.561 oz General appearance: PRESENT: no acute distress, well-developed, well-nourished Head exam: PRESENT: atraumatic, normocephalic Eye exam: PRESENT: conjunctiva pink, EOMI, PERRLA. ABSENT: scleral icterus Ear exam: PRESENT: normal external ear exam Mouth exam: PRESENT: moist, tongue midline Neck exam: ABSENT: carotid bruit, JVD, lymphadenopathy, thyromegaly Respiratory exam: PRESENT: clear to auscultation evens. ABSENT: rales, rhonchi, wheezes Cardiovascular exam: PRESENT: RRR. ABSENT: diastolic murmur, rubs, systolic murmur Pulses: PRESENT: normal dorsalis pedis pul GI/Abdominal exam: PRESENT: normal bowel sounds, soft. ABSENT: distended, guarding, mass, organolmegaly, rebound, tenderness Rectal exam: PRESENT: deferred Extremities exam: PRESENT: full ROM. ABSENT: calf tenderness, clubbing, pedal edema Neurological exam: PRESENT: alert, awake, oriented to person, oriented to place, oriented to time, oriented to situation, CN II-XII grossly intact. ABSENT: motor sensory deficit Results Laboratory Results: 04/18/19 07:51 04/19/19 09:24 04/17/19 16:00 Clean Catch Midstream Urine Culture - Final Escherichia Coli Urogenital Magaly 04/17/19 15:52 Creatine Kinase 27 L Impressions: Chest X-Ray 04/17/19 18:08 IMPRESSION: NO ACUTE RADIOGRAPHIC FINDING IN THE CHEST. Abdomen/Pelvis CT 04/17/19 18:49 IMPRESSION: No acute abnormality within the abdomen or pelvis. 3.0 cm abdominal aortic aneurysm. Recommend follow-up every 3 years. Reference: J Am Evin Radiol 2013;10:789-794. 6.0 mm solid pulmonary nodule detected on incomplete chest CT. Recommend a non-contrast Chest CT at 6-12 months, then consider an additional non-contrast Chest CT at 18-24 months. These guidelines do not apply to immunocompromised patients and patients with cancer. Follow up in patients with significant comorbidities as clinically warranted. For lung cancer screening, adhere to Lung-RADS guidelines. Reference: Radiology. 2017; 284(1):228-43. TECHNICAL DOCUMENTATION: Quality ID # [id number]: Final reports with documentation of one or more dose reduction techniques (e.g., Automated exposure control, adjustment of the mA and/or kV according to patient size, use of iterative reconstruction technique) copyright 2011 [employer]- All Rights Reserved Shoulder X-Ray 04/18/19 00:00 IMPRESSION: Mild degenerative changes. No acute findings. Qualifiers - * PATIENT BEING DISCHARGED WITH ANY OF THE FOLLOWING DIAGNOSIS: No Acute Heart Failure - Is this a Heart Failure Patient?: No
== END 2019-04-19 11:52 | disposition home or self-care (01) ==
LOC: ER 13:44 → EH 18:55 → 4N 19:52
PROVIDERS: ADMIT Internal Medicine; ATTEND Internal Medicine
DX: N17.9 Acute kidney failure, unspecified (principal); R33.9 Retention of urine, unspecified; R39.15 Urgency of urination; R30.0 Dysuria; R82.79 Other abnormal findings on microbiological examination of urine; I10 Essential (primary) hypertension; D72.829 Elevated white blood cell count, unspecified; R50.9 Fever, unspecified; G89.29 Other chronic pain; M25.511 Pain in right shoulder; R91.1 Solitary pulmonary nodule; I71.4 Abdominal aortic aneurysm, without rupture; Z90.11 Acquired absence of right breast and nipple; Z86.73 Personal history of transient ischemic attack (TIA), and cerebral infarction without residual deficits; Z79.899 Other long term (current) drug therapy; Z87.891 Personal history of nicotine dependence
CPT/HCPCS: 99285; 96365; 36415 ×3; 87040; 87086; 82550; 85025 ×2; 87088; 80048 ×2; 80053; 81001; 87186; 80307; 71045; 73030; 74176; 93005; 93010; G0378 ×3; J3490 ×10; J1644; J0360; J7030 ×3; J0696 ×3

== ENCOUNTER → 2019-07-16 | Outpatient (CLI) | payer MEDICAID ==
--- NOTE | 2019-07-16 15:00 | WOMENS IMAGING REPORT ---
EXAM DESCRIPTION: RETROPERITONEAL U/S COMPLETED DATE/TIME: 07/16/2019 1:31 pm REASON FOR STUDY: N18.3 CHRONIC KIDNEY DISEASE, STAGE 3 (MODERATE) N18.3 CHRONIC KIDNEY DISEASE, ST AGE 2 (MODERATE) COMPARISON: CT of the abdomen and pelvis without contrast from 04/17/2019. TECHNIQUE: Dynamic and static grayscale images acquired of the kidneys and bladder and recorded on P ACS. Additional selected color Doppler and spectral images recorded. LIMITATIONS: None. FINDINGS: RIGHT KIDNEY: The right kidney measures 10.1 cm in length. The echotexture of the renal parenchyma is normal. The corticomedullary differentiation is preserved. There is no hydronephrosis , mass or calcification. LEFT KIDNEY: The left kidney measures 10.6 cm in length. The echotexture of the renal parenchymal i s normal. The corticomedullary differentiation is preserved. There is no hydronephrosis, mass or ca lcification. BLADDER: No masses. OTHER FINDINGS: No other finding. IMPRESSION: No abnormality of the kidneys and urinary bladder. TECHNICAL DOCUMENTATION: JOB ID: [id number] [employer]- All Rights Reserved Reading location - IP/workstation name: [email or web address]
== END ==
LOC: RAD 12:50
PROVIDERS: ATTEND Internal Medicine Nephrology
DX: N18.3 Chronic kidney disease, stage 3 (moderate) (principal)
CPT/HCPCS: 76770

== ENCOUNTER → 2019-10-13 | Outpatient (CLI) | payer MEDICAID ==
[2019-10-13 14:17] LABS: ALBUMIN 4.7 g/dL (3.5-5.0); ALKALINE PHOSPHATASE 70 U/L (38-126); ANION GAP 13 (5-19); ASPARTATE AMINO TRANSFERASE 17 U/L (14-36); BILIRUBIN,DIRECT 0.1 mg/dL (0.0-0.4); BILIRUBIN,TOTAL 0.6 mg/dL (0.2-1.3); BLOOD UREA NITROGEN 33 mg/dL (7-20); CALCIUM 10.1 mg/dL (8.4-10.2); CARBON DIOXIDE 27 mmol/L (22-30); CHLORIDE 95 mmol/L (98-107); GLUCOSE 116 mg/dL (75-110); POTASSIUM 4.4 mmol/L (3.6-5.0); TOTAL PROTEIN 7.7 g/dL (6.3-8.2)
== END ==
LOC: OD 12:40
DX: I10 Essential (primary) hypertension (principal)
CPT/HCPCS: 36415; 80053

== ENCOUNTER → 2019-11-12 | Outpatient (CLI) | payer MEDICAID ==
[2019-11-12 12:13] LABS: ABSOLUTE BASOPHILS # (AUTO) 0.1 10^3/uL (0.0-0.2); ABSOLUTE EOSINOPHILS # (AUTO) 0.1 10^3/uL (0.0-0.6); ABSOLUTE LYMPHOCYTES (AUTO) 1.2 10^3/uL (0.5-4.7); ABSOLUTE MONOCYTES (AUTO) 0.7 10^3/uL (0.1-1.4); BASOPHILS % (AUTO) 0.6 % (0-2); EOSINOPHILS % (AUTO) 1.2 % (0-6); HEMATOCRIT 35.8 % (36.0-47.0); HEMOGLOBIN 12.6 g/dL (12.0-15.5); LYMPHOCYTES % (AUTO) 13.3 % (13-45); MEAN CORPUSCULAR HEMOGLOBIN 28.5 pg (27.0-33.4); MEAN CORPUSCULAR HGB CONC 35.1 g/dL (32.0-36.0); MEAN CORPUSCULAR VOLUME 81 fl (80-97); MONOCYTES % (AUTO) 8.1 % (3-13); PLATELET COUNT 270 10^3/uL (150-450); RED BLOOD COUNT 4.41 10^6/uL (3.72-5.28); RED CELL DISTRIBUTION WIDTH 13.7 % (11.5-14.0); SEGMENTED NEUTROPHILS % (AUTO) 76.8 % (42-78); TOTAL CELLS COUNTED % (AUTO) 100 %; WHITE BLOOD COUNT 9.1 10^3/uL (4.0-10.5)
[2019-11-12 12:33] LABS: ANION GAP 12 (5-19); BLOOD UREA NITROGEN 38 mg/dL (7-20); CALCIUM 9.6 mg/dL (8.4-10.2); CARBON DIOXIDE 25 mmol/L (22-30); CHLORIDE 98 mmol/L (98-107); GLUCOSE 100 mg/dL (75-110); POTASSIUM 4.4 mmol/L (3.6-5.0)
== END ==
LOC: OD 11:08
PROVIDERS: ATTEND Internal Medicine Nephrology
DX: I12.9 Hypertensive chronic kidney disease with stage 1 through stage 4 chronic kidney disease, or unspecified chronic kidney disease (principal); N18.3 Chronic kidney disease, stage 3 (moderate); D64.9 Anemia, unspecified
CPT/HCPCS: 36415; 80048; 83735; 85025